=== PATIENT | female | born 1985 | race Caucasian/White ===

== ENCOUNTER 2022-09-20 11:16 | Inpatient (IN) ==
[2022-09-20] MEDS ORDERED: SODIUM CHLORIDE 0.9% 1000ML 1,000 ML IV ONE (11:33)
[2022-09-20] MEDS ORDERED: ONDANSETRON INJ 2 MG/ML 2 ML VIAL IV STA (11:46)
[2022-09-20] MEDS ORDERED: MoRPHine SULFATE 4 MG/ML 1 ML CARP\\VIAL IV STA ×2 (11:46→13:39)
[2022-09-20] MEDS ORDERED: KETOROLAC TROMETHAMINE 15 MG/ML VIAL IV ONE ×2 (11:46→17:30)
[2022-09-20] MEDS ORDERED: CEFEPIME 2,000 MG in SYRINGE 0 ML IV STA (11:49)
[2022-09-20] MEDS ORDERED: metroNIDAZOLE 500 MG/100 ML BAG IV STA (11:50)
--- NOTE | 2022-09-20 11:51 | Emergency Department Note ---
Impression & Plan Cellulitis of left foot, Leukocytosis, Abscess, Puncture wound ED Provider Note NAME: OLAMIDE FELIX AGE: 37 SEX: F : 1985 ARRIVES VIA: Walk-In INFORMANT: [Patient] ED PROVIDER(S): [Andrea Pearson MD] CHIEF COMPLAINT: Left foot pain and swelling HISTORY OF PRESENT ILLNESS: The patient is a 37-year-old female with diabetes. She states that 2 days ago, she stepped on a nail. She was not wearing a shoe. The patient states that there was pain initially but in the last 12 to 24 hours, the pain has worsened to an 8/10, even more painful when she tries to walk. She has noticed redness now spreading over the plantar aspect and dorsal aspect of her left foot. She has pain radiating up her left leg. The patient has had chills, no documented fever. She has not a cough, cold or congestion. No respiratory complaints. The patient was seen at an urgent care and referred to the ED for her work-up. Of note, the patient's tetanus status is current within the last 5 years. PMHx/PSHx: See Below SOCIAL HISTORY: See Below. PHYSICAL EXAM: GENERAL: Patient is in no acute distress. HEENT: No acute trauma, normocephalic atraumatic, mucous membranes moist, no nasal congestion. NECK: No stridor, no adenopathy, no meningismus, trachea is midline. LUNGS: Clear to auscultation bilaterally, no wheeze, no rhonchi, breath sounds equal. HEART: Without murmurs gallops or rubs, regular rate and rhythm. ABDOMEN: Soft, nontender, bowel sounds positive, no peritonitis. EXTREMITIES: Patient has erythema to the dorsal left foot and plantar left foot. There is pain to palpate this area. There is warmth present. No drainage. Along the plantar aspect of the foot at the base of the fifth toe is what appears to be a puncture wound with a potential small half centimeter abscess present. There is pain to move the toes. NEUROLOGIC: Oriented x 3, no acute motor or sensory deficits, no focal weakness. SKIN: No jaundice, no diaphoresis. DIFFERENTIAL DIAGNOSIS: Foreign body, tenosynovitis, cellulitis, fracture, bacteremia or sepsis, abscess, among others. EMERGENCY DEPARTMENT COURSE/PROCEDURES: Prior/Outside records reviewed: Outpatient/urgent care notes. Abscess drainage: This procedure was performed by me. Using sterile technique, an 18-gauge needle was used to open the small abscess seen along the plantar aspect of the left foot at the base of the fifth toe. An 11 blade scalpel was then used to open the area further. Puslike drainage was noted and sent for culture. No complications with the procedure. A bandage was placed. MEDICAL DECISION MAKING: There is a mild leukocytosis which would be consistent with infection. There is no anemia. The platelet count is normal. No renal failure or significant electrolyte abnormality. Lactic acid level and procalcitonin levels are normal making severe sepsis less likely. Urinalysis shows potential contamination versus infection. COVID test returned negative. Left foot CT does show some small abscesses as well as a cellulitis. No foreign body seen. On exam, the patient's left foot was tender and erythematous and warm to the touch. I was able to drain a small amount of pus from the wound as noted above. The patient received IV morphine for pain, IV Toradol for pain, she received IV Zofran for nausea, she was given IV saline, IV Flagyl and IV cefepime. Given the findings today, I do think a hospital stay is warranted. The patient may actually require orthopedic or podiatric surgical intervention if not responding well to the antibiotic therapy. I did speak with the patient and case management, the on-call hospitalist was consulted. DISPOSITION: Given the findings and presentation a hospital stay was warranted. Past Med/Surg History Medical History Diabetes mellitus Social History Smoking Status: Never smoker Preferred Language: Divehi Feels Safe at Home: Yes Allergies Allergies Allergy/AdvReac Type Severity Reaction Status Date / Time azithromycin [From Zithromax] Allergy Difficulty Verified 09/20/22 13:38 Breathing meperidine [From Demerol] Allergy Difficulty Verified 09/20/22 13:38 Breathing Penicillins Allergy Difficulty Verified 09/20/22 13:38 Breathing vancomycin Allergy Difficulty Verified 09/20/22 13:38 Breathing Home Meds Home Medications Medication Instructions Recorded Confirmed buspirone 15 mg tablet 15 mg PO TID 09/20/22 09/20/22 metformin 500 mg tablet,extended 500 mg PO QDD 09/20/22 09/20/22 release 24 hr omeprazole 40 mg capsule,delayed 40 mg PO DAILY 09/20/22 09/20/22 release paroxetine HCl 10 mg tablet 10 mg PO QAM 09/20/22 09/20/22 paroxetine HCl 40 mg tablet 40 mg PO QAM 09/20/22 09/20/22 Results & Data (ED) Vital Signs Vital Signs - 24 hr 09/20/22 11:26 09/20/22 12:29 Temperature 36.3 C L Temperature Source Oral Pulse Rate 85 73 Pulse Rhythm Regular Pulse Strength Normal Respiratory Rate 20 Respiratory Effort / Characteristics Non-Labored Spontaneous Respiratory Depth Normal Respiratory Pattern Regular Blood Pressure 153/97 H Blood Pressure Mean 115 Blood Pressure Position Sitting Pulse Oximetry 97 Oxygen Delivery Method Room Air Sepsis Recent Fever Within 48 Hours No Sepsis New/Unexplained Change in Mental Status No Sepsis Action Taken by Nursing No Action Required Home Medications Current Medication List: was personally reviewed by me Laboratory Data Attestation: I reviewed the patient's lab results. 09/20/22 11:46 09/20/22 11:46 Lab Results 09/20/22 09/20/22 09/20/22 Range/Units 11:46 11:46 11:46 WBC 13.48 H (4.8-10.8) K/ul RBC 4.55 (4.20-5.40) M/uL Hgb 13.8 (12.0-16.0) g/dl Hct 40.6 (37.0-47.0) % MCV 89.2 (80.0-100.0) fL MCH 30.3 (25.0-34.0) pg MCHC 34.0 (32.0-36.0) g/dL RDW Std Deviation 40.4 (36.4-46.3) fL RDW Coeff of Louann 12.3 (11.5-14.5) % Plt Count 297 (130-400) K/uL MPV 10.2 (9.4-12.4) fL Immature Gran % (Auto) 0.4 % Neut % (Auto) 77.5 % Lymph % (Auto) 12.3 % Blair % (Auto) 4.9 % Eos % (Auto) 4.5 % Baso % (Auto) 0.4 % Neut # (Auto) 10.44 H (1.40-6.50) K/uL Lymph # (Auto) 1.66 (1.2-3.4) K/uL Blair # (Auto) 0.66 H (0.11-0.59) K/uL Eos # (Auto) 0.60 H (0-0.50) K/uL Baso # (Auto) 0.06 (0-0.2) K/uL Immature Gran # (Auto) 0.06 (0.01-0.20) K/uL Sodium 139 (136-145) mmol/L Potassium 3.6 (3.5-5.1) mmol/L Chloride 105 (98-107) mmol/L Carbon Dioxide 28 (21-32) mmol/L Anion Gap 6 (3-11) BUN 15 (6-23) mg/dl Creatinine 1.04 (0.6-1.2) mg/dl Est Cr Clr Drug Dosing 95.8 ml/min Est GFR ( Amer) 78.4 ml/min Est GFR (Non-Af Amer) 67.6 ml/min BUN/Creatinine Ratio 14.4 (10-20) Glucose 116 H (70-99(Fasting)) mg/dl Lactate 0.9 (0.4-2.0) mmol/L Calcium 9.1 (8.5-10.1) mg/dl Procalcitonin (0-0.5) ng/ml Urine Color Urine Appearance (Clear) Urine pH (4.5-7.5) Ur Specific [place] (1.000-1.030) Urine Protein (Negative) Urine Glucose (UA) (Negative) Urine Ketones (Negative) Urine Blood (Negative) Urine Nitrite (Negative) Urine Bilirubin (Negative) Urine Urobilinogen (Negative) Ur Leukocyte Esterase (Negative) Urine WBC (Auto) (0-5) /hpf Urine RBC (Auto) (0-4) /hpf U Hyaline Cast (Auto) (0-5) /lpf U Epithel Cells (Auto) (0-5) /lpf Urine Bacteria (Auto) (Negative) SARS-CoV-2, RNA, NAAT (NEGATIVE) 09/20/22 09/20/22 09/20/22 Range/Units 11:58 12:03 13:09 WBC (4.8-10.8) K/ul RBC (4.20-5.40) M/uL Hgb (12.0-16.0) g/dl Hct (37.0-47.0) % MCV (80.0-100.0) fL MCH (25.0-34.0) pg MCHC (32.0-36.0) g/dL RDW Std Deviation (36.4-46.3) fL RDW Coeff of Louann (11.5-14.5) % Plt Count (130-400) K/uL MPV (9.4-12.4) fL Immature Gran % (Auto) % Neut % (Auto) % Lymph % (Auto) % Blair % (Auto) % Eos % (Auto) % Baso % (Auto) % Neut # (Auto) (1.40-6.50) K/uL Lymph # (Auto) (1.2-3.4) K/uL Blair # (Auto) (0.11-0.59) K/uL Eos # (Auto) (0-0.50) K/uL Baso # (Auto) (0-0.2) K/uL Immature Gran # (Auto) (0.01-0.20) K/uL Sodium (136-145) mmol/L Potassium (3.5-5.1) mmol/L Chloride (98-107) mmol/L Carbon Dioxide (21-32) mmol/L Anion Gap (3-11) BUN (6-23) mg/dl Creatinine (0.6-1.2) mg/dl Est Cr Clr Drug Dosing ml/min Est GFR ( Amer) ml/min Est GFR (Non-Af Amer) ml/min BUN/Creatinine Ratio (10-20) Glucose (70-99(Fasting)) mg/dl Lactate (0.4-2.0) mmol/L Calcium (8.5-10.1) mg/dl Procalcitonin 0.09 (0-0.5) ng/ml Urine Color Yellow Urine Appearance Cloudy A (Clear) Urine pH 5.5 (4.5-7.5) Ur Specific [place] 1.036 H (1.000-1.030) Urine Protein 2+ H (Negative) Urine Glucose (UA) Negative (Negative) Urine Ketones Trace H (Negative) Urine Blood 3+ H (Negative) Urine Nitrite Negative (Negative) Urine Bilirubin Negative (Negative) Urine Urobilinogen Negative (Negative) Ur Leukocyte Esterase 2+ H (Negative) Urine WBC (Auto) >30 H (0-5) /hpf Urine RBC (Auto) >30 H (0-4) /hpf U Hyaline Cast (Auto) 10-30 H (0-5) /lpf U Epithel Cells (Auto) 20-30 H (0-5) /lpf Urine Bacteria (Auto) 1+ H (Negative) SARS-CoV-2, RNA, NAAT NEGATIVE (NEGATIVE) Administered Medications Discontinued Medications Sodium Chloride (Nss 1000ml) 1,000 mls @ 999 mls/hr IV .Q1H1M ONE Stop: 09/20/22 12:33 Last Admin: 09/20/22 12:08 Dose: 999 mls/hr Documented By: QGV Cefepime HCl 2,000 mg/ Syringe 20 mls @ 5 mls/min IV NOW STA Stop: 09/20/22 11:52 Last Admin: 09/20/22 12:09 Dose: 5 mls/min Documented By: QGV Metronidazole (Flagyl) 500 mg in 100 mls @ 100 mls/hr IV NOW STA Stop: 09/20/22 12:49 Last Infusion: 09/20/22 13:49 Dose: 0 mls/hr Documented By: Admin: 09/20/22 12:10 Dose: 100 mls/hr Documented By: QGV Ioversol (Optiray 350 100ml) 94 ml IV ONCE ONE Stop: 09/20/22 12:35 Last Admin: 09/20/22 12:35 Dose: 94 ml Documented By: AMAURI Ketorolac Tromethamine (Ketorolac Tromethamine 15 Mg/Ml Vial) 10 mg IV NOW ONE Stop: 09/20/22 11:47 Last Admin: 09/20/22 12:09 Dose: 10 mg Documented By: QGV Morphine Sulfate (Morphine Sulfate 4 Mg/Ml 1 Ml Carp\Vial) 4 mg IV NOW STA Stop: 09/20/22 11:47 Last Admin: 09/20/22 12:09 Dose: 4 mg Documented By: QGV Morphine Sulfate (Morphine Sulfate 4 Mg/Ml 1 Ml Carp\Vial) 4 mg IV NOW STA Stop: 09/20/22 13:40 Last Admin: 09/20/22 13:46 Dose: 4 mg Documented By: QGV Ondansetron HCl (Ondansetron Inj 2 Mg/Ml 2 Ml Vial) 4 mg IV NOW STA Stop: 09/20/22 11:47 Last Admin: 09/20/22 12:09 Dose: 4 mg Documented By: QGV Imaging Data Radiologist's Impression: Foot CT 09/20/22 11:[address] WITH CONTRAST CLINICAL HISTORY: Left foot pain and swelling following stepping on a nail. Possible abscess or foreign body. COMPARISON STUDY: No previous studies for comparison. TECHNIQUE: Axial images of the left foot were obtained following intravenous injection of 94 cc of Optiray 320 IV. Sagittal and coronal reconstructions were viewed. Automated exposure control was utilized for the study. A dose lowering technique was utilized adhering to the principles of ALARA. FINDINGS: Alignment of the left foot is anatomic. Posterior calcaneal spurring with calcifications within the distal Achilles are incidentally noted. There is no acute fracture within the left foot. No radiopaque foreign bodies are present. A marker was placed on the skin at site of recent puncture wound. Associated skin thickening is present. There is moderate associated subcutaneous stranding with fluid along the plantar aspect of the left forefoot, at the level of the bases of the left fourth and fifth toes. There is possible tiny rim- enhancing fluid collections adjacent to the left fifth metatarsal head measuring up to 2 mm. No drainable fluid collection is present. The soft tissue swelling extends toward the left fourth and fifth metatarsophalangeal joints. No bony erosion is identified. Dorsal subcutaneous stranding of the left foot is also noted. Tarsometatarsal joints are intact. IMPRESSION: No radiopaque foreign body. No fracture within the left foot. Puncture wound of the plantar aspect of the left forefoot. Associated skin thickening and inflammation consistent with cellulitis which extends toward the left fourth and fifth metatarsophalangeal joints. A few possible tiny abscesses adjacent to the left fifth metatarsal head, as described above, measuring up to 2 mm. No drainable fluid collections. Dorsal subcutaneous stranding could reflect proximal extension of the infectious process. No CT evidence for tenosynovitis. No evidence for acute osteomyelitis. ACT 112: Negative or not required by law. Electronically signed by: Brian Edmondson M.D. 09/20/2022 1:33 PM Discharge Plan Visit Data Chief Complaint: Swelling/Edema to Extremity Stated Complaint: EXTREMITY SWELLING AFTER STEPPING ON NAIL ED Provider: Andrea Pearson Discharge Problem: Cellulitis of left foot, Leukocytosis, Abscess, Puncture wound Patient Disposition: Admitted As Inpatient Condition: Fair Forms Stand Alone Forms: [facility] Prescriptions Prescriptions: No Action paroxetine HCl 10 mg tablet 10 mg PO QAM omeprazole 40 mg capsule,delayed release(DR/EC) 40 mg PO DAILY paroxetine HCl 40 mg tablet 40 mg PO QAM metformin 500 mg tablet extended release 24 hr 500 mg PO QDD buspirone 15 mg tablet 15 mg PO TID Referrals Referrals: PCP,NO [Primary Care Provider] -
[2022-09-20 12:16] LABS: Basophils # (auto) 0.06 K/uL (0-0.2); Basophils % (auto) 0.4 %; Eosinophils % (auto) 4.5 %; Hematocrit (blood only) 40.6 % (37.0-47.0); Hemoglobin 13.8 g/dl (12.0-16.0); Immature Granulocytes # (auto) 0.06 K/uL (0.01-0.20); Immature Granulocytes % (auto) 0.4 %; Lymphocytes # (auto) 1.66 K/uL (1.2-3.4); Lymphocytes % (auto) 12.3 %; Mean Corpuscular Hemoglobin 30.3 pg (25.0-34.0); Mean Corpuscular Volume 89.2 fL (80.0-100.0); Mean Platelet Volume 10.2 fL (9.4-12.4); Monocytes # (auto) 0.66 K/uL (0.11-0.59); Monocytes % (auto) 4.9 %; Neutrophils # (auto) 10.44 K/uL (1.40-6.50); Neutrophils % (auto) 77.5 %; Platelet Count 297 K/uL (130-400); RDW Coefficient of Variation 12.3 % (11.5-14.5); RDW Standard Deviation 40.4 fL (36.4-46.3); Red Blood Count 4.55 M/uL (4.20-5.40); White Blood Count 13.48 K/ul (4.8-10.8)
[2022-09-20 12:27] LABS: BUN Creatinine Ratio 14.4 (10-20); Calcium 9.1 mg/dl (8.5-10.1); Creatinine Clr Calc Pharmacy 95.8 ml/min; Est GFR (African American) 78.4 ml/min; Est GFR (Non-African American) 67.6 ml/min; Potassium 3.6 mmol/L (3.5-5.1)
[2022-09-20] MEDS ORDERED: OPTIRAY 350 100ml IV ONE (12:34)
[2022-09-20 13:26] LABS: Appearance Urine Cloudy (Clear); Bacteria Urine Automated 1+ (Negative); Bilirubin Urine Negative (Negative); Blood Urine 3+ (Negative); Color Urine Yellow; Epithelial Cell Urine Auto 20-30 /lpf (0-5); Glucose Urine UA Negative (Negative); Ketones Urine Trace (Negative); Leukocyte Esterase Urine 2+ (Negative); Nitrite Urine Negative (Negative); Protein Urine 2+ (Negative); RBC Urine Automated >30 /hpf (0-4); Specific Gravity Urine 1.036 (1.000-1.030); Urobilinogen Urine Negative (Negative); WBC Urine Automated >30 /hpf (0-5); pH Urine 5.5 (4.5-7.5)
--- NOTE | 2022-09-20 13:35 | CT Scan Report ---
LEFT FOOT CT WITH CONTRAST CLINICAL HISTORY: Left foot pain and swelling following stepping on a nail. Possible abscess or forei gn body. COMPARISON STUDY: No previous studies for comparison. TECHNIQUE: Axial images of the left foot were obtained following intravenous injection of 94 cc of Op tiray 320 IV. Sagittal and coronal reconstructions were viewed. Automated exposure control was utiliz ed for the study. A dose lowering technique was utilized adhering to the principles of ALARA. FINDINGS: Alignment of the left foot is anatomic. Posterior calcaneal spurring with calcifications wi thin the distal Achilles are incidentally noted. There is no acute fracture within the left foot. No radiopaque foreign bodies are present. A marker was placed on the skin at site of recent puncture wou nd. Associated skin thickening is present. There is moderate associated subcutaneous stranding with f luid along the plantar aspect of the left forefoot, at the level of the bases of the left fourth and fifth toes. There is possible tiny rim-enhancing fluid collections adjacent to the left fifth metatar ana head measuring up to 2 mm. No drainable fluid collection is present. The soft tissue swelling ext ends toward the left fourth and fifth metatarsophalangeal joints. No bony erosion is identified. Dors al subcutaneous stranding of the left foot is also noted. Tarsometatarsal joints are intact. IMPRESSION: No radiopaque foreign body. No fracture within the left foot. Puncture wound of the plantar aspect of the left forefoot. Associated skin thickening and inflammation consistent with cellulitis which exte nds toward the left fourth and fifth metatarsophalangeal joints. A few possible tiny abscesses adjace nt to the left fifth metatarsal head, as described above, measuring up to 2 mm. No drainable fluid co llections. Dorsal subcutaneous stranding could reflect proximal extension of the infectious process. No CT evidence for tenosynovitis. No evidence for acute osteomyelitis. ACT 112: Negative or not required by law. Electronically signed by: Brian Edmondson M.D. 09/20/2022 1:33 PM
--- NOTE | 2022-09-20 14:19 | History & Physical Report ---
Date of Service September 20, 2022 Assessment & Plan (1) Cellulitis of left foot: Plan: -Admit to med/surge -The patient is currently afebrile, hemodynamically stable, and stable on RA -Patient stepped on a screw on 09/17 and has experienced progressive swelling, erythema, and tenderness to the left foot -Noted to have a leukocytosis with left shit -CT of the left foot shows cellulitis of the left foot with a 2 mm abscess adjacent to the left fifth metatarsal head -S/P I&D of the abscess in the ED, patient was given Cefepime and flagyl prior to admission -Due to her hx of DM and penicillin allergy will continue with Cefepime for Pseudomonas coverage, Flagyl for anaerobic coverage and will add on Daptomycin for MRSA coverage -Follow wound and blood cultures obtained in the ED and tailor abx regimen to them -Will obtain a left LE arterial duplex for assessment of her perfusion to the left foot for further assessment -Tylenol 650 mg PO q4h prn pain 1,2,3 or fever, Morphine 2 mg IV q3h prn pain 4,5,6 + -Will consult ortho to follow -Will start with Sub-Q lovenox for DVT PPX -AM CBC, BMP, and Mag (2) Diabetes mellitus: Plan: -Hold metformin -Monitor BSG ACHS, goal is 110-140 -Lantus 5 units BID, correction factor of 35, carb ratio of 12 -DM II diet (3) GERD (gastroesophageal reflux disease): Plan: -Contiune PPI (4) Asthma: Plan: -Stable on RA without recent exacerbation -Continue PRN albuterol Plan The patient was discussed with Dr. Morales at the time of the admission History of Present Illness Chief Complaint: Please refer to Dr. Morales's attention for any changes to the treatment plan Primary Care Provider: NO PCP Carline is a 37 year old female with a PMH significant for obesity, DM II, GERD, and anxiety who presented to the [facility] ED from an Urgent Care clinic due to left foot swelling. In the ED the patient was found to be afebrile, hemodynamically stable, and stable on RA. Labs were remarkable for a leukocytosis of 13 with left shift of 10, stable Hgb and platelets, cr of 1.04, stable electrolytes, UA showing a cloudy appearance, 2+ urine protein, 2+ leukocyte esterase, >30 WBC, and 1+ bacteria, and covid negative. CT fot he left foot with contrast was read as "No radiopaque foreign body. No fracture within the left foot. Puncture wound of the plantar aspect of the left forefoot. Associated skin thickening and inflammation consistent with cellulitis which extends toward the left fourth and fifth metatarsophalangeal joints. A few possible tiny abscesses adjacent to the left fifth metatarsal head, as described above, measuring up to 2 mm. No drainable fluid collections. Dorsal subcutaneous stranding could reflect proximal extension of the infectious process. No CT evidence for tenosynovitis. No evidence for acute osteomyelitis.". Prior to admission to admission the patient had the small abscess adjacent to the left fifth toe drained and sent for gram stain, culture, and sensitivity. She was given a dose of cefepime and Flagyl and given 10 mg Toradol, 8 mg IV morphine, 1L NSS, and 4 mg IV Zofran. At the time of the exam the patient was resting in bed in no acute distress with her sitting bedside. She states that on 09/17 she stepped on a screw in their bathroom. At the time she had a small puncture wound with a minimal bleeding. She cleaned the wound with hydrogen peroxide and was using a topical antibiotic ointment. Over the past 48 hours her foot has become progressively more swollen, erythematous, and tender. She attempted to drain the area of greatest swelling at the base of her left fifth tow but only had minimal drainage at that time. She denies fevers but has noticed chills, she denies chest pain, abdominal pain, nausea, vomiting, dysuria, hematuria melena. She states that she has known BL kidney stones and has been following with Urology outpatient, her next appointment is next Thursday, she confirms that she has been without urinary symptoms recently. She is no longer taking Paxil due to feeling more anxious when starting the medication recently. Allergies Allergy/AdvReac Type Severity Reaction Status Date / Time azithromycin [From Zithromax] Allergy Difficulty Verified 09/20/22 13:38 Breathing meperidine [From Demerol] Allergy Difficulty Verified 09/20/22 13:38 Breathing Penicillins Allergy Difficulty Verified 09/20/22 13:38 Breathing vancomycin Allergy Difficulty Verified 09/20/22 13:38 Breathing Home Medications Medication Instructions Recorded Confirmed Type albuterol sulfate 90 mcg/actuation 1 puff inhalation Q4 PRN Wheezing 09/20/22 09/20/22 History aerosol inhaler buspirone 15 mg tablet 15 mg PO TID 09/20/22 09/20/22 History metformin 500 mg tablet,extended 500 mg PO QDD 09/20/22 09/20/22 History release 24 hr omeprazole 40 mg capsule,delayed 40 mg PO DAILY 09/20/22 09/20/22 History release Past Med/Surg History Medical History (Updated 09/21/22 @ 09:13 by Lulu Engel PA-C) Diabetes mellitus Social History Smoking Status: Never smoker Second Hand Exposure: No; Do You Dip or Chew Tobacco: No; Hx Alcohol Use: No Hx Substance Use: No Preferred Language: Cuban Communication Ability: Effective [facility] Nurse Required: No Beliefs That Will Affect Care: None Current Living Situation: Spouse and Family Other Information That Helps Us Care for You: No Feels Safe at Home: Yes Safety Concerns: Feels Safe At This Time Assistive Devices: None Review of Systems Review of Systems: Denies current fever, headache, changes in vision, hearing, taste, and smell, chest pain, SOB, cough, abdominal pain, nausea, vomiting, diarrhea, hematemesis, melena, dysuria, hematuria, and recent falls. All systems have been reviewed and are otherwise negative. Physical Exam Physical Exam: Physical Exam: General: In no acute distress, stated age, obese, non-toxic appearing HEENT: Normocephalic, atraumatic, no scleral icterus, pupils around round, symmetrical, and reactive to light, moist mucus membranes, trachea midline, no thyromegaly Chest/Pulm: No respiratory distress, symmetrical chest expansion, clear breath sounds throughout Cardiac: RRR, no murmurs noted Abdomen: Negative for ascites and bruising, normoactive bowel sounds, soft, non-tender to palpation throughout Musculoskeletal:Patient with erythema and swelling of the left foot, recent I&D site noted just proximal to the left fifth toe, not currently drainage, the foot appears swollen and is tender to palpation Extremities: Radial, dorsalis pedis, and posterior tibial pulses are intact and symmetrical, no pitting edema noted in the BL LE's Skin: As described above Neuro: Alert and oriented to person, place, month, year, and president, no focal defects, no tremors noted Psych: No acute distress, calm and cooperative during the exam Results & Data Results & Data ([facility]) Vital Signs (Past 12 Hours) Vital Signs Temp Pulse Resp BP Pulse Ox O2 Del Method 09/20/22 12:29 73 09/20/22 11:26 36.3 C L 85 20 153/97 H 97 Room Air Laboratory Results Abnormal lab results 09/20/22 09/20/22 09/20/22 Range/Units 11:46 11:46 13:09 WBC 13.48 H (4.8-10.8) K/ul Neut # (Auto) 10.44 H (1.40-6.50) K/uL [place] # (Auto) 0.66 H (0.11-0.59) K/uL [place] # (Auto) 0.60 H (0-0.50) K/uL Glucose 116 H (70-99(Fasting)) mg/dl Urine Appearance Cloudy A (Clear) Ur Specific [place] 1.036 H (1.000-1.030) Urine Protein 2+ H (Negative) Urine Ketones Trace H (Negative) Urine Blood 3+ H (Negative) Ur Leukocyte Esterase 2+ H (Negative) Urine WBC (Auto) >30 H (0-5) /hpf Urine RBC (Auto) >30 H (0-4) /hpf U Hyaline Cast (Auto) 10-30 H (0-5) /lpf U Epithel Cells (Auto) 20-30 H (0-5) /lpf Urine Bacteria (Auto) 1+ H (Negative) Diagnostic Findings Foot CT 09/20/22 11:[address] WITH CONTRAST CLINICAL HISTORY: Left foot pain and swelling following stepping on a nail. Possible abscess or foreign body. COMPARISON STUDY: No previous studies for comparison. TECHNIQUE: Axial images of the left foot were obtained following intravenous injection of 94 cc of Optiray 320 IV. Sagittal and coronal reconstructions were viewed. Automated exposure control was utilized for the study. A dose lowering technique was utilized adhering to the principles of ALARA. FINDINGS: Alignment of the left foot is anatomic. Posterior calcaneal spurring with calcifications within the distal Achilles are incidentally noted. There is no acute fracture within the left foot. No radiopaque foreign bodies are present. A marker was placed on the skin at site of recent puncture wound. Associated skin thickening is present. There is moderate associated subcutaneous stranding with fluid along the plantar aspect of the left forefoot, at the level of the bases of the left fourth and fifth toes. There is possible tiny rim- enhancing fluid collections adjacent to the left fifth metatarsal head measuring up to 2 mm. No drainable fluid collection is present. The soft tissue swelling extends toward the left fourth and fifth metatarsophalangeal joints. No bony erosion is identified. Dorsal subcutaneous stranding of the left foot is also noted. Tarsometatarsal joints are intact. IMPRESSION: No radiopaque foreign body. No fracture within the left foot. Puncture wound of the plantar aspect of the left forefoot. Associated skin thickening and inflammation consistent with cellulitis which extends toward the left fourth and fifth metatarsophalangeal joints. A few possible tiny abscesses adjacent to the left fifth metatarsal head, as described above, measuring up to 2 mm. No drainable fluid collections. Dorsal subcutaneous stranding could reflect proximal extension of the infectious process. No CT evidence for tenosynovitis. No evidence for acute osteomyelitis. ACT 112: Negative or not required by law. Electronically signed by: Brian Edmondson M.D. 09/20/2022 1:33 PM Code Status & VTE Plan Code Status Full Code VTE Prophylaxis Plan VTE Prophylaxis will be ordered: Yes Supervising Physician Co-Signing Physician Notes I personally saw and examined the patient. I verified all moon points and agree with Naif Gonzalez PA-C with the following exceptions and/or additions: 37 year old female presents to the ER with left foot cellulitis with initial puncture injury 3 days ago. O/E HS RRR, no murmurs, Chest CTAB, Abdo SNT, erythema and swelling of left foot from puncture wound to ankle (does not extend beyond ankle). PT/DP pulses intact. A/P Left foot cellulitis - diabetic wound - daptomycin, cefepime, metronidazole. Follow up blood and wound cultures. Gram stain many gram positive cocci. US arterial doppler due to diabetes. PG Care Time/CCT Total # of Minutes Spent Total Time Spent with Patient: Total time spent is greater than 50% in coordination of care (as documented) at patient's floor/unit and/or counseling patient: Coding [place] [address] INT INP/OBS CARE 3/75MIN Patient Type Established Medical Decision Making High Complexity Diagnoses Cellulitis of left foot L03.116 Diabetes mellitus E11.9 GERD (gastroesophageal reflux disease) K21.9 Asthma J45.909
[2022-09-20] MEDS ORDERED: DEXTROSE 50% 50 ML SYRINGE IV PRN (14:20)
[2022-09-20] MEDS ORDERED: CARBOHYDRATES FOR HYPOGLYCEMIA PO PRN (14:20)
[2022-09-20] MEDS ORDERED: GLUCOSE 10 TAB/TUBE PO PRN (14:20)
[2022-09-20] MEDS ORDERED: GLUCOSE 40% GEL 15 GM TUBE PO PRN (14:20)
[2022-09-20] MEDS ORDERED: GLUCAGON FOR INJ 1 MG VIAL SQ PRN (14:20)
[2022-09-20] MEDS ORDERED: ACETAMINOPHEN 325 MG TAB PO PRN (14:48)
[2022-09-20] MEDS: DAPTOmycin 325 MG in SYRINGE 0 ML IV SCH (14:50)
[2022-09-20] MEDS: MoRPHine SULFATE 2 MG/ML CARP IV PRN ×3 (15:37→23:28)
--- NOTE | 2022-09-20 15:46 | Ultrasound Report ---
LEFT LOWER EXTREMITY ARTERIAL DOPPLER ULTRASOUND CLINICAL HISTORY: Left foot wound, monitor for adequate blood flow COMPARISON STUDY: No previous studies for comparison. TECHNIQUE: Grayscale, color and duplex Doppler sonography of the arterial system of the left lower ex tremity was performed. FINDINGS: There was triphasic flow within the left common femoral, superficial femoral, popliteal, an terior tibial, posterior tibial, dorsalis pedis and peroneal arteries. No elevated velocities were id entified. No significant plaque was identified. IMPRESSION: Unremarkable left lower extremity arterial Doppler ultrasound. Patent vessels. No stenos es. ACT 112: Negative or not required by law. Electronically signed by: Brian Edmondson M.D. 09/20/2022 3:44 PM
[2022-09-20] MEDS ORDERED: ALBUTEROL HFA 8 GM INHALER INH PRN (16:02)
[2022-09-20] MEDS: INSULIN ASPART PER UNIT SC SCH ×3 (17:27→20:34)
[2022-09-20] MEDS: ENOXAPARIN INJ 40 MG/0.4 ML SYR SQ SCH (18:16)
[2022-09-20] MEDS: busPIRone 15 MG TAB PO SCH (20:25)
[2022-09-20] MEDS: LANTUS PER UNIT CHARGE SQ SCH (20:34)
[2022-09-20] MEDS: ACETAMINOPHEN 325 MG TAB PO SCH (22:19)
[2022-09-20] MEDS: metroNIDAZOLE 500 MG/100 ML BAG IV SCH (22:19)
[2022-09-20] MEDS: CEFEPIME 2,000 MG in SYRINGE 0 ML IV SCH (23:28)
[2022-09-21] MEDS: MoRPHine SULFATE 2 MG/ML CARP IV PRN ×5 (02:29→19:36)
[2022-09-21] MEDS: IBUPROFEN 600 MG TAB PO PRN ×2 (03:23→12:01)
[2022-09-21] MEDS: ENOXAPARIN INJ 40 MG/0.4 ML SYR SQ SCH ×2 (04:51→15:49)
[2022-09-21] MEDS: ACETAMINOPHEN 325 MG TAB PO SCH ×4 (04:51→22:34)
[2022-09-21] MEDS: metroNIDAZOLE 500 MG/100 ML BAG IV SCH ×3 (04:52→21:17)
--- NOTE | 2022-09-21 07:59 | Hospitalist Progress Note ---
Date of Service September 21, 2022 Assessment & Plan (1) Cellulitis of left foot: Plan: Patient w/ PMHx morbid obesity/DM II, GERD admitted following stepping on screw 09/17 with progressive swelling/erythema/tenderness LEFT FOOT (per ER, patient tetanus status current within last 5 years) s/p I&D abscess in ER, given Cefepime + Flagyl Imaging w/ Foot CT: No radiopaque foreign body. No fracture within the left foot. Puncture wound of the plantar aspect of the left forefoot. Associated skin thickening and inflammation consistent with cellulitis which extends toward the left fourth and fifth metatarsophalangeal joints. A few possible tiny abscesses adjacent to the left fifth metatarsal head, as described above, measuring up to 2 mm. No drainable fluid collections. Dorsal subcutaneous stranding could reflect proximal extension of the infectious process. No CT evidence for tenosynovitis. No evidence for acute osteomyelitis. US w/ patent vessels Orthopedics consulted -- continue current plan w/ abx, no abscess for drainage. If not improving, next step MRI for eval abscess/oseo Cx from ER-- group A beta strep on preliminary, monitor Blood cultures pending WBC improved, afebrile Continue on Cefepime/Flagyl/Dapto given PCN allergy Started probiotic Order to ankita area of erythema, elevated extremity (reported by RN elevating yesterday, dependent today) Pain control -- had morphine/tylenol. -- Will add oxycodone prn given page to overnight team and provided ibuprofen Antiemetics prn -- ADDED ZOFRAN, reported n/v this morning. Add Phenergan if ineffective. KUB w/o obstruction -- Checking Renal U/S given stones. Also check Vit D given hx stone formation, consider PTH if needed to r/o hyperparathyroidism causing issues +NS+20meq KCl @ 75cc/hr while having issues w n/v, will cap at 1L and monitor intake/n/v Pepcid IVP daily added Lovenox SQ for DVT prophylaxis Monitor labs in AM (2) Diabetes mellitus: Plan: Hold metformin (on 500mg daily) +check A1c (reports last she believes ~6.7) Cancelled DM educator consult ordered on admission, could have her increase her metformin to 500mg BID outpatient given improvement in A1c to 5.7 on repeat Initially ordered lantus 5u BID, CF 35, CR 12 Given A1c of 5.7 and POC 80-100, discontinued further lantus and will monitor BSGs w/ SSI for now Placed on DM diet (3) GERD (gastroesophageal reflux disease): Plan: Continue PPI, pepcid IVP added while n/v can resume PPI (4) Asthma: Plan: Stable on RA without recent exacerbation Continue PRN albuterol Checked mag -- 1.5, 3gm IV replacement ordered (5) Urinary tract infection: Plan: UA w/ evidence for infection. WBC> epi known b/l kidney stones reported on admit, should be covered w/ abx as above she states she is for surgery this upcoming Thursday for her L renal pelvis stone as almost completely blocking her kidney, also known stones on the right. L CVA tenderness Blood cultures/urine cultures pending Check Renal U/S for eval hydronephrosis/stones given CVA tenderness (6) Nausea & vomiting: Plan: reported this morning 1x zofran overnight, additional 1x dose ordered for NOW and available prn, phenergan if ineffective KUB as above (7) Anxiety: Plan: on buspar, continued per HPI and patient, not taking Paxil, discontinued symptoms appear stable at present (8) Hypomagnesemia: Plan: checked w am labs, n/v, borderline K and hx asthma mag 1.5, IV replacement ordered monitor on repeat (9) Vitamin D deficiency: Plan: levels checked in patient w/ recurrent kidney stones for further eval Plan continued inpatient stay changed to admit Admission and Anticipated Discharge Date Admission Date: September 20, 2022 Supervising Physician Co-Signing Physician Notes The patient was not seen by me. The chart was reviewed. Case discussed with SHASHA Everett. Agree with assessment and plan Subjective eval this morning, episode of vomiting, patel/browinsh color. had not taken meds. no zofran ordered but got 1x dose and made available as needed. States usually improvement in appetite/PO once zofran kicks in. . she states she is feeling better, pain to left foot, tender to touch, redness reported about the same. just got dose oxycodone for pain control, hoping for longer control given ibuprofen overnight. Discussed hx kidney stones/UTI, she states she deals with them so frequently with her kidney stones that she doesn't notice that often. To have surgery for L renal pevis stone with Dr Heller in [place], follows with Dr Moss from [place] for PCP. She notes she has extensive history of stones, not on flomax. Also has 2 stones on the right they are monitoring. No CVA tenderness on the right but does have some on the left. Checking renal US for eval and can copy imaging if needed for her f/u. Not taking paxil due to migraines and making her jittery. Denies any fevers but has had some chills. No chest pain/shortness of breath. Monitoring urine/foot cultures. Not yet seen by orthopedics. Started probiotic while on abx. Last BM 09/19. Last A1c reported she thinks ~6.7. Questions/concerns addressed at this time. Physical Exam Physical Exam: Physical Exam: WN/WD obese female sitting up in bed, reporting improvement since zofran administration HEENT: head normocephalic, atraumatic, mm slightly dry but improved Resp: CTAb, no w/c, on room air CV: RRR, significant m/r/g, no calf tenderness GI: +BS, soft/NT : no rodas, + LEFT CVA tenderness MSK/Neuro: L foot with erythema and swelling, opening to plantar surface of foot near 5th toe, tender to palpation, no active drainage, pulses palpable Psych: AOx3, cooperating Results & Data Results & Data ([facility]) Vital Signs (Past 12 Hours) Vital Signs Temp Pulse Pulse Resp BP BP Pulse Ox 09/21/22 07:15 36.4 C L 67 18 117/78 97 09/20/22 20:31 36.4 C L 63 18 108/64 96 O2 Del Method 09/21/22 07:15 Room Air 09/20/22 20:31 Room Air Laboratory Results 09/20/22 09/20/22 09/20/22 Range/Units 20:27 17:08 13:09 WBC (4.8-10.8) K/ul RBC (4.20-5.40) M/uL Hgb (12.0-16.0) g/dl Hct (37.0-47.0) % MCV (80.0-100.0) fL MCH (25.0-34.0) pg MCHC (32.0-36.0) g/dL RDW Std Deviation (36.4-46.3) fL RDW Coeff of Louann (11.5-14.5) % Plt Count (130-400) K/uL MPV (9.4-12.4) fL Immature Gran % (Auto) % Neut % (Auto) % Lymph % (Auto) % [place] % (Auto) % Eos % (Auto) % Baso % (Auto) % Neut # (Auto) (1.40-6.50) K/uL Lymph # (Auto) (1.2-3.4) K/uL [place] # (Auto) (0.11-0.59) K/uL Eos # (Auto) (0-0.50) K/uL Baso # (Auto) (0-0.2) K/uL Immature Gran # (Auto) (0.01-0.20) K/uL Sodium (136-145) mmol/L Potassium (3.5-5.1) mmol/L Chloride (98-107) mmol/L Carbon Dioxide (21-32) mmol/L Anion Gap (3-11) BUN (6-23) mg/dl Creatinine (0.6-1.2) mg/dl Est Cr Clr Drug Dosing ml/min Est GFR ( Amer) ml/min Est GFR (Non-Af Amer) ml/min BUN/Creatinine Ratio (10-20) Glucose (70-99(Fasting)) mg/dl POC Glucose 92 86 (70-99) mg/dl Lactate (0.4-2.0) mmol/L Calcium (8.5-10.1) mg/dl Procalcitonin (0-0.5) ng/ml Urine Color Yellow Urine Appearance Cloudy A (Clear) Urine pH 5.5 (4.5-7.5) Ur Specific [place] 1.036 H (1.000-1.030) Urine Protein 2+ H (Negative) Urine Glucose (UA) Negative (Negative) Urine Ketones Trace H (Negative) Urine Blood 3+ H (Negative) Urine Nitrite Negative (Negative) Urine Bilirubin Negative (Negative) Urine Urobilinogen Negative (Negative) Ur Leukocyte Esterase 2+ H (Negative) Urine WBC (Auto) >30 H (0-5) /hpf Urine RBC (Auto) >30 H (0-4) /hpf U Hyaline Cast (Auto) 10-30 H (0-5) /lpf U Epithel Cells (Auto) 20-30 H (0-5) /lpf Urine Bacteria (Auto) 1+ H (Negative) SARS-CoV-2, RNA, NAAT (NEGATIVE) 09/20/22 09/20/22 09/20/22 Range/Units 12:03 11:58 11:46 WBC (4.8-10.8) K/ul RBC (4.20-5.40) M/uL Hgb (12.0-16.0) g/dl Hct (37.0-47.0) % MCV (80.0-100.0) fL MCH (25.0-34.0) pg MCHC (32.0-36.0) g/dL RDW Std Deviation (36.4-46.3) fL RDW Coeff of Louann (11.5-14.5) % Plt Count (130-400) K/uL MPV (9.4-12.4) fL Immature Gran % (Auto) % Neut % (Auto) % Lymph % (Auto) % [place] % (Auto) % Eos % (Auto) % Baso % (Auto) % Neut # (Auto) (1.40-6.50) K/uL Lymph # (Auto) (1.2-3.4) K/uL [place] # (Auto) (0.11-0.59) K/uL Eos # (Auto) (0-0.50) K/uL Baso # (Auto) (0-0.2) K/uL Immature Gran # (Auto) (0.01-0.20) K/uL Sodium (136-145) mmol/L Potassium (3.5-5.1) mmol/L Chloride (98-107) mmol/L Carbon Dioxide (21-32) mmol/L Anion Gap (3-11) BUN (6-23) mg/dl Creatinine (0.6-1.2) mg/dl Est Cr Clr Drug Dosing ml/min Est GFR ( Amer) ml/min Est GFR (Non-Af Amer) ml/min BUN/Creatinine Ratio (10-20) Glucose (70-99(Fasting)) mg/dl POC Glucose (70-99) mg/dl Lactate 0.9 (0.4-2.0) mmol/L Calcium (8.5-10.1) mg/dl Procalcitonin 0.09 (0-0.5) ng/ml Urine Color Urine Appearance (Clear) Urine pH (4.5-7.5) Ur Specific [place] (1.000-1.030) Urine Protein (Negative) Urine Glucose (UA) (Negative) Urine Ketones (Negative) Urine Blood (Negative) Urine Nitrite (Negative) Urine Bilirubin (Negative) Urine Urobilinogen (Negative) Ur Leukocyte Esterase (Negative) Urine WBC (Auto) (0-5) /hpf Urine RBC (Auto) (0-4) /hpf U Hyaline Cast (Auto) (0-5) /lpf U Epithel Cells (Auto) (0-5) /lpf Urine Bacteria (Auto) (Negative) SARS-CoV-2, RNA, NAAT NEGATIVE (NEGATIVE) 09/20/22 09/20/22 Range/Units 11:46 11:46 WBC 13.48 H (4.8-10.8) K/ul RBC 4.55 (4.20-5.40) M/uL Hgb 13.8 (12.0-16.0) g/dl Hct 40.6 (37.0-47.0) % MCV 89.2 (80.0-100.0) fL MCH 30.3 (25.0-34.0) pg MCHC 34.0 (32.0-36.0) g/dL RDW Std Deviation 40.4 (36.4-46.3) fL RDW Coeff of Louann 12.3 (11.5-14.5) % Plt Count 297 (130-400) K/uL MPV 10.2 (9.4-12.4) fL Immature Gran % (Auto) 0.4 % Neut % (Auto) 77.5 % Lymph % (Auto) 12.3 % [place] % (Auto) 4.9 % Eos % (Auto) 4.5 % Baso % (Auto) 0.4 % Neut # (Auto) 10.44 H (1.40-6.50) K/uL Lymph # (Auto) 1.66 (1.2-3.4) K/uL [place] # (Auto) 0.66 H (0.11-0.59) K/uL Eos # (Auto) 0.60 H (0-0.50) K/uL Baso # (Auto) 0.06 (0-0.2) K/uL Immature Gran # (Auto) 0.06 (0.01-0.20) K/uL Sodium 139 (136-145) mmol/L Potassium 3.6 (3.5-5.1) mmol/L Chloride 105 (98-107) mmol/L Carbon Dioxide 28 (21-32) mmol/L Anion Gap 6 (3-11) BUN 15 (6-23) mg/dl Creatinine 1.04 (0.6-1.2) mg/dl Est Cr Clr Drug Dosing 95.8 ml/min Est GFR ( Amer) 78.4 ml/min Est GFR (Non-Af Amer) 67.6 ml/min BUN/Creatinine Ratio 14.4 (10-20) Glucose 116 H (70-99(Fasting)) mg/dl POC Glucose (70-99) mg/dl Lactate (0.4-2.0) mmol/L Calcium 9.1 (8.5-10.1) mg/dl Procalcitonin (0-0.5) ng/ml Urine Color Urine Appearance (Clear) Urine pH (4.5-7.5) Ur Specific [place] (1.000-1.030) Urine Protein (Negative) Urine Glucose (UA) (Negative) Urine Ketones (Negative) Urine Blood (Negative) Urine Nitrite (Negative) Urine Bilirubin (Negative) Urine Urobilinogen (Negative) Ur Leukocyte Esterase (Negative) Urine WBC (Auto) (0-5) /hpf Urine RBC (Auto) (0-4) /hpf U Hyaline Cast (Auto) (0-5) /lpf U Epithel Cells (Auto) (0-5) /lpf Urine Bacteria (Auto) (Negative) SARS-CoV-2, RNA, NAAT (NEGATIVE) Diagnostic Findings Foot CT 09/20/22 11:[address] WITH CONTRAST CLINICAL HISTORY: Left foot pain and swelling following stepping on a nail. Possible abscess or foreign body. COMPARISON STUDY: No previous studies for comparison. TECHNIQUE: Axial images of the left foot were obtained following intravenous i njection of 94 cc of Optiray 320 IV. Sagittal and coronal reconstructions were viewed. Automated exposure control was utilized for the study. A dose lowering technique was utilized adhering to the principles of ALARA. FINDINGS: Alignment of the left foot is anatomic. Posterior calcaneal spurring with calcifications within the distal Achilles are incidentally noted. There is no acute fracture within the left foot. No radiopaque foreign bodies are present. A marker was placed on the skin at site of recent puncture wound. Associated skin thickening is present. There is moderate associated subcutaneous stranding with fluid along the plantar aspect of the left forefoot, at the level of the bases of the left fourth and fifth toes. There is possible tiny rim- enhancing fluid collections adjacent to the left fifth metatarsal head measuring up to 2 mm. No drainable fluid collection is present. The soft tissue swelling extends toward the left fourth and fifth metatarsophalangeal joints. No bony erosion is identified. Dorsal subcutaneous stranding of the left foot is also noted. Tarsometatarsal joints are intact. IMPRESSION: No radiopaque foreign body. No fracture within the left foot. Puncture wound of the plantar aspect of the left forefoot. Associated skin thickening and inflammation consistent with cellulitis which extends toward the left fourth and fifth metatarsophalangeal joints. A few possible tiny abscesses adjacent to the left fifth metatarsal head, as described above, measuring up to 2 mm. No drainable fluid collections. Dorsal subcutaneous stranding could reflect p roximal extension of the infectious process. No CT evidence for tenosynovitis. No evidence for acute osteomyelitis. ACT 112: Negative or not required by law. Electronically signed by: Brian Edmondson M.D. 09/20/2022 1:33 PM Duplex Scan Lower Extremity Artery 09/20/22 14:33 LEFT LOWER EXTREMITY ARTERIAL DOPPLER ULTRASOUND CLINICAL HISTORY: Left foot wound, monitor for adequate blood flow COMPARISON STUDY: No previous studies for comparison. TECHNIQUE: Grayscale, color and duplex Doppler sonography of the arterial system of the left lower extremity was performed. FINDINGS: There was triphasic flow within the left common femoral, superficial femoral, popliteal, anterior tibial, posterior tibial, dorsalis pedis and peroneal arteries. No elevated velocities were identified. No significant plaque was identified. IMPRESSION: Unremarkable left lower extremity arterial Doppler ultrasound. Patent vessels. No stenoses. ACT 112: Negative or not required by law. Electronically signed by: Brian Edmondson M.D. 09/20/2022 3:44 PM KUB X-Ray 09/21/22 08:37 KUB CLINICAL HISTORY: Nausea and vomiting. COMPARISON STUDY: None. FINDINGS: Cholecystectomy clips are incidentally noted. There is no evidence for a bowel obstruction. Contrast within the bladder from recent contrast-enhanced CT is noted. Pelvic calcifications statistically reflect phleboliths. 8 mm calcification projects of the left renal pelvis. There are suspected small bilateral renal calculi. IMPRESSION: 1. Possible 8 mm left renal pelvis calculus. 2. Suspected bilateral nephrolithiasis. 3. Multiple pelvic calcifications. These likely reflect phleboliths although distal ureteral calculi could appear similar. ACT 112: Negative or not required by law. Electronically signed by: Brian Edmondson M.D. 09/21/2022 9:38 AM PG Care Time/CCT Total # of Minutes Spent Total Time Spent with Patient: Total time spent is greater than 50% in coordination of care (as documented) at patient's floor/unit and/or counseling patient: Coding Level of Care Code 19446 SUB INP/OBS CARE 3/50MIN Diagnoses Cellulitis of left foot L03.116 Diabetes mellitus E11.9 GERD (gastroesophageal reflux disease) K21.9 Asthma J45.909 Urinary tract infection N39.0 Nausea & vomiting R11.2 Anxiety F41.9 Hypomagnesemia E83.42 Vitamin D deficiency E55.9
[2022-09-21] MEDS: PANTOprazole 40 MG TAB PO SCH (08:30)
[2022-09-21] MEDS: busPIRone 15 MG TAB PO SCH ×3 (08:30→21:16)
[2022-09-21] MEDS ORDERED: ONDANSETRON INJ 2 MG/ML 2 ML VIAL IV STA (08:34)
[2022-09-21] MEDS ORDERED: FAMOTIDINE 20 MG in SYRINGE 3 ML IV ONE (08:35)
[2022-09-21] MEDS ORDERED: ONDANSETRON INJ 2 MG/ML 2 ML VIAL ONE (08:37)
[2022-09-21] MEDS: INSULIN ASPART PER UNIT SC SCH ×4 (08:48→21:28)
[2022-09-21] MEDS: LANTUS PER UNIT CHARGE SQ SCH (08:49)
[2022-09-21] MEDS: oxyCODONE HCL IR 5 MG TAB (IMMEDIATE RELEASE) PO PRN ×3 (08:53→22:33)
[2022-09-21 08:54] LABS: Calcium 8.9 mg/dl (8.5-10.1); Creatinine Clr Calc Pharmacy 102.1 ml/min; Potassium 3.7 mmol/L (3.5-5.1)
[2022-09-21] MEDS ORDERED: PARoxetine HCL 10 MG TAB PO SCH (09:00)
[2022-09-21 09:04] LABS: BUN Creatinine Ratio 16.5 (10-20); Est GFR (African American) 85.3 ml/min; Est GFR (Non-African American) 73.6 ml/min; Magnesium 1.5 mg/dl (1.7-2.4)
[2022-09-21 09:06] LABS: Prothrombin Time 10.5 Seconds (9.0-12.0)
[2022-09-21] MEDS: ADVANCED PROBIOTIC 1250 MG CAPSULE PO SCH (09:22)
--- NOTE | 2022-09-21 09:40 | XRay Report ---
KUB CLINICAL HISTORY: Nausea and vomiting. COMPARISON STUDY: None. FINDINGS: Cholecystectomy clips are incidentally noted. There is no evidence for a bowel obstruction. Contrast within the bladder from recent contrast-enhanced CT is noted. Pelvic calcifications statist ically reflect phleboliths. 8 mm calcification projects of the left renal pelvis. There are suspected small bilateral renal calculi. IMPRESSION: 1. Possible 8 mm left renal pelvis calculus. 2. Suspected bilateral nephrolithiasis. 3. Multiple pelvic calcifications. These likely reflect phleboliths although distal ureteral calculi could appear similar. ACT 112: Negative or not required by law. Electronically signed by: Brian Edmondson M.D. 09/21/2022 9:38 AM
--- NOTE | 2022-09-21 10:20 | Consultation Report ---
ORTHOPEDIC SURGERY CONSULTATION Special attention to left diabetic foot infection. HISTORY OF PRESENT ILLNESS: This is a 37-year-old female who sustained a puncture wound on 09/17/2022 which actually stepped on a screw. She has progressive pain and swelling of the left foot. She was admitted to the hospitalist service and has been started on antibiotics. She was given cefepime and Flagyl in the Emergency Department and I and D was performed in the ER. She is currently on cefepime, Flagyl, and daptomycin. Diagnostic studies: Review of ultrasound shows patent vessels without evidence of blockage. Review of a CAT scan of the foot. Does not show definitive evidence of osteomyelitis or drainable fluid collection, possible tiny fluid collection about 2 cm is suggested. No CAT scan evidence of tenosynovitis. PHYSICAL EXAMINATION: On left foot exam, there is a puncture wound to the volar aspect of the foot. I cannot express any pus. She has surrounding erythema of the foot extending to the dorsal aspect of the foot about 3 inches proximal to the toes. The patient has pain with motion of the toes. I did not identify any definitive fluctuant area. No streaking erythema. Calves are soft. PAST MEDICAL HISTORY: Includes, 1. Diabetes. 2. GERD. 3. Asthma. 4. Urinary tract infection. ASSESSMENT: Diabetic foot infection, likely cellulitis. PLAN: At this point in time, recommendation is to continue antibiotics. I do not see a surgical indications at this time as there is no large drainable abscess identified on CAT scan, no evidence of osteomyelitis. We will recommend to follow clinical course. If she does not have improvement or worsens, the next step would be MRI for evaluation of abscess or osteomyelitis. Should her course worsen, I would recommend consideration for referral to a Podiatry or orthopedic family development extension specialist for possible irrigation and debridement. At this point in time, no surgical indications currently. Job ID: [id number] [facility]
[2022-09-21] MEDS: MAGNESIUM SULFATE / D5W 1 GM/100 ML BAG IV SCH ×3 (10:30→14:31)
--- NOTE | 2022-09-21 10:33 | Ultrasound Report ---
RENAL ULTRASOUND HISTORY: n/v, hx stones, eval pyelo COMPARISON: KUB 09/21/2022. FINDINGS: Right kidney: 12.1 cm. There are 2 stones measuring 9 mm and 5 mm. No hydronephrosis. Focal scarring within the right kidney is noted. Left kidney: 11.6 cm. There are 2 stones measuring 13 mm and 9 mm. A 13 mm stone resides within the r enal pelvis. No hydronephrosis. Focal scarring within the upper pole. Bladder: No bladder wall thickening. The bilateral ureteral jets were identified. IMPRESSION: 1. Bilateral nephrolithiasis. The dominant 13 mm stone within the left kidney resides within the left renal pelvis. 2. No hydronephrosis. ACT 112: Negative or not required by law. Electronically signed by: David Peralta M.D. 09/21/2022 10:30 AM
[2022-09-21] MEDS ORDERED: PROMETHAZINE HCL 6.25 MG in SODIUM CHLORIDE 0.9% 50 ML IV STA (10:34)
[2022-09-21 10:41] LABS: Basophils % (auto) 0.8 %; Eosinophils # (auto) 0.74 K/uL (0-0.50); Eosinophils % (auto) 5.7 %; Hematocrit (blood only) 39.2 % (37.0-47.0); Hemoglobin 13.3 g/dl (12.0-16.0); Immature Granulocytes # (auto) 0.04 K/uL (0.01-0.20); Immature Granulocytes % (auto) 0.3 %; Lymphocytes % (auto) 12.3 %; Mean Corpuscular Hemoglobin 30.4 pg (25.0-34.0); Mean Corpuscular Hgb Conc 33.9 g/dL (32.0-36.0); Mean Corpuscular Volume 89.5 fL (80.0-100.0); Mean Platelet Volume 10.4 fL (9.4-12.4); Monocytes # (auto) 0.64 K/uL (0.11-0.59); Monocytes % (auto) 4.9 %; Neutrophils # (auto) 9.85 K/uL (1.40-6.50); Platelet Count 269 K/uL (130-400); RDW Coefficient of Variation 12.5 % (11.5-14.5); RDW Standard Deviation 41.2 fL (36.4-46.3); Red Blood Count 4.38 M/uL (4.20-5.40); White Blood Count 12.97 K/ul (4.8-10.8)
[2022-09-21] MEDS ORDERED: NSS + 20MEQ KCL 20 MEQ/1,000 ML BAG IV SCH (10:45)
[2022-09-21 11:23] LABS: Estimated Average Glucose 117 mg/dl; Hemoglobin A1C 5.7 % (4.5-5.6)
[2022-09-21] MEDS: CEFEPIME 2,000 MG in SYRINGE 0 ML IV SCH (12:03)
[2022-09-21] MEDS: ONDANSETRON INJ 2 MG/ML 2 ML VIAL IV PRN ×3 (13:16→22:33)
[2022-09-21] MEDS: DAPTOmycin 325 MG in SYRINGE 0 ML IV SCH (15:49)
--- NOTE | 2022-09-21 17:02 | Urology Consultation ---
Date of Consultation September 21, 2022 Assessment & Plan (1) Bilateral kidney stones: (2) Abscess: (3) Cellulitis of left foot: (4) Diabetes mellitus: (5) Urinary tract infection: (6) Nausea & vomiting: Plan Patient admitted for cellulitis and significant infection. Undergoing antibiotic management. Patient also has known stone disease. Has followed with urologist in [place]. Has had significant issues with flank pain at times. Has come and gone. Patient has been having intermittent issues. Has large bilateral stones. Were confirmed on ultrasound. No signs of considerable obstruction. Has been dealing with UTI symptoms as well. Has been undergoing treatment for this. Patient's vitals are currently stable. Has not been having considerable tachycardia and no hypotension. No fever. Patient is on broad-spectrum antibiotics. White count is currently 12.97. Creatinine was 0.97. Hemoglobin is 13.3. Patient's imaging was reviewed interpreted by myself. Findings of numerous large stones on both kidneys. No signs of significant hydronephrosis. Discussed options for conservative measure and maximum expulsion medical therapy and symptom controlled. Discussed ESWL. Discussed Ureteroscopy with extraction and/or laser lithotripsy. Risks and benefits were discussed. Stone free rates were also discussed as well as possibility of multiple procedures. Ureteral stents were discussed as well as post-operative issues and pain management. All questions were answered. Discussed continued conservative measures with hydration and IV antibiotics. We will plan to monitor for now. Can consider making n.p.o. at midnight with possibility of treatment of stones if patient continues to have issues. Was plan to seeing her urologist in [place] ion Thursday. Patient's complicated medical and surgical history was. Summarized above. All imaging was reviewed interpreted by myself. Lab work was all reviewed. Number of positive values as above. Patient's currently on broad-spectrum antibiotics and agree with plans to de-escalate based on cultures. Patient has had numerous stones treated in the past. Has had PCNL, lithotripsy, and ureteroscopy. At this point patient is most concerned about a managing her lower extremity issues. Unless a major or sudden obstruction or other issue developed at this point would likely hold off on major intervention. Will maintain n.p.o. after midnight tonight in case issues do develop but otherwise will likely have patient follow-up with her known urologist down in [place]. History of Present Illness Attending Physician: Nicolás Banks MD History of Present Illness New consultation for patient with stone, discomfort, obstruction, and ill feelings. Patient developed sudden onset of pain into flank going down and radiating into groin and back in waves comes and goes. Can be severe at times. Discussed and reviewed patient's family history for any history of stone disease. Also, discussed patient's medical surgery history especially related to any history of urinary issues or stone disease. Patient was admitted and is undergoing observation for LE cellulitis. Patient has been on antibiotics. Has been dealing with significant issues. Does have diabetes and obesity. Also numerous drug allergies. Patient has been following with an urologist down in [place]. At [place] there was some plans to possibly treat the large burden of stones bilaterally. Has been dealing with intermittent episodes of flank pain. Has been bothersome at times. Allergies Allergy/AdvReac Type Severity Reaction Status Date / Time azithromycin [From Zithromax] Allergy Difficulty Verified 09/20/22 13:38 Breathing meperidine [From Demerol] Allergy Difficulty Verified 09/20/22 13:38 Breathing Penicillins Allergy Difficulty Verified 09/20/22 13:38 Breathing vancomycin Allergy Difficulty Verified 09/20/22 13:38 Breathing Home Medications Medication Instructions Recorded Confirmed Type albuterol sulfate 90 mcg/actuation 1 puff inhalation Q4 PRN Wheezing 09/20/22 09/20/22 History aerosol inhaler buspirone 15 mg tablet 15 mg PO TID 09/20/22 09/20/22 History metformin 500 mg tablet,extended 500 mg PO QDD 09/20/22 09/20/22 History release 24 hr omeprazole 40 mg capsule,delayed 40 mg PO DAILY 09/20/22 09/20/22 History release Patient History Medical History (Updated 09/21/22 @ 16:59 by Jim Louis DO) Diabetes mellitus Social History Smoking Status: Never smoker Second Hand Exposure: No; Do You Dip or Chew Tobacco: No; Hx Alcohol Use: No Hx Substance Use: No Preferred Language: Greenlandic Communication Ability: Effective Store Operations Specialist Required: No Beliefs That Will Affect Care: None Current Living Situation: Spouse and Family Other Information That Helps Us Care for You: No Feels Safe at Home: Yes Safety Concerns: Feels Safe At This Time Assistive Devices: None Review of Systems Review of Systems: All systems reviewed & are unremarkable except as noted in HPI & below Physical Exam Physical Exam: General: Alert and oriented x 3 in no acute distress. HEENT: Normocephalic Atraumatic. Inspection normal. Cranial Nerves 2-12 Grossly intact. Nares are clear. Neck is supple. Normal inspection of face. Normal inspection of neck. Neurologic: No deficits on inspection. Baseline for motor function and sensory. Psychologic: Normal affect. Respiratory: Nonlabored. No use of accessory muscles. No tachypnea or dyspnea. Cardiovascular: No tachycardia Skin: [place] and Dry. No rashes or visible lesions. Extremities: Significant Cellulitis Abdomen: Morbid Obesity. Moderately distended. No rebound or guarding. Results & Data ([facility]) Vital Signs (Past 12 Hours) Vital Signs Temp Pulse Resp BP Pulse Ox O2 Del Method 09/21/22 15:17 37.0 C 64 16 119/73 96 Room Air 09/21/22 07:15 36.4 C L 67 18 117/78 97 Room Air PG Care Time/CCT Total # of Minutes Spent Total Time Spent with Patient: Total time spent is greater than 50% in coordination of care (as documented) at patient's floor/unit and/or counseling patient: Coding Level of Care Code 77383 INT INP/OBS CARE 3/75MIN Diagnoses Bilateral kidney stones N20.0 Abscess L02.91 Cellulitis of left foot L03.116 Diabetes mellitus E11.9 Urinary tract infection N39.0 Nausea & vomiting R11.2
[2022-09-21] MEDS: PROMETHAZINE HCL 6.25 MG in SODIUM CHLORIDE 0.9% 50 ML IV PRN (18:23)
[2022-09-22] MEDS: IBUPROFEN 600 MG TAB PO PRN ×2 (00:07→21:46)
[2022-09-22] MEDS: ONDANSETRON INJ 2 MG/ML 2 ML VIAL IV PRN ×2 (03:16→19:29)
[2022-09-22] MEDS: MoRPHine SULFATE 2 MG/ML CARP IV PRN ×4 (03:17→19:29)
[2022-09-22] MEDS ORDERED: Nursing to Pharmacy Communication SCH ×3 (04:45→16:15)
[2022-09-22] MEDS: ENOXAPARIN INJ 40 MG/0.4 ML SYR SQ SCH ×2 (05:10→17:46)
[2022-09-22] MEDS: metroNIDAZOLE 500 MG/100 ML BAG IV SCH ×3 (06:05→22:24)
[2022-09-22] MEDS: PROMETHAZINE HCL 6.25 MG in SODIUM CHLORIDE 0.9% 50 ML IV PRN (06:14)
[2022-09-22] MEDS: ACETAMINOPHEN 325 MG TAB PO SCH ×4 (06:26→21:47)
[2022-09-22] MEDS: INSULIN ASPART PER UNIT SC SCH ×4 (06:27→20:48)
--- NOTE | 2022-09-22 07:03 | Orthopedic Progress Note ---
Date of Service September 22, 2022 Assessment & Plan (1) Cellulitis of left foot: (2) Abscess: Plan Left diabetic foot infection with cellulitis Concern for development of abscess vs. osteomyelitis -Patient continues with left foot pain, unchanged since yesterday -Examination today with continued erythema and edema, redevelopment of purulent discharge since yesterday concerning for possible abscess formation -Will order MRI left foot w/o contrast for further evaluation of abscess vs. osteomyelitis -Preliminary wound cultures with Group A Beta strep. Currently on IV Cefepime, Flagyl and Daptomycin - continue abx per primary -Will follow results of MRI - possible need for repeat I&D vs. other surgical intervention pending results -Continue dressing changes as needed Admission and Anticipated Discharge Date Admission Date: September 21, 2022 Subjective Patient continues with left foot pain, states unchanged since yesterday. She is able to move her great toe but is having difficulty moving her 2nd-5th toes due to her discomfort. No numbness/tingling. She continues on IV abx, has remained afebrile and additional VSS. Also currently being monitored by Urology for bilateral kidney stones, considering possible intervention if worsening symptom or signs of acute obstruction. Physical Exam Physical Exam: General: Resting in bed, appears uncomfortable but no acute distress Neuro: Awake, alert and oriented x 3 Left foot/lower extremity: Puncture wound to the volar aspect of the foot about the distal 5th metatarsal with purulent drainage. Surrounding erythema and edema extending to the dorsal aspect of the foot into the toes. Fluctuant and extr jaylan tender to palpation. Great toe is mobile, unable to move 2nd-5th toes secondary to pain. No lymphangitic erythema. ROM of the ankle intact, calves remain soft. Sensation and d/p pulse intact Results & Data ([facility]) Vital Signs (Past 12 Hours) Vital Signs Temp Pulse Resp BP Pulse Ox O2 Del Method 09/21/22 20:55 36.9 C 87 18 139/90 95 Room Air Laboratory Results Laboratory Tests 09/22/22 09/22/22 06:42 06:42 WBC 14.00 H RBC 4.39 Hgb 13.2 Hct 39.2 Neut # (Auto) 10.81 H [place] # (Auto) 0.67 H Eos # (Auto) 0.67 H Sodium 138 Potassium 3.6 Chloride 104 BUN 13 Creatinine 1.07 Glucose 113 H
[2022-09-22 07:06] LABS: Basophils # (auto) 0.07 K/uL (0-0.2); Basophils % (auto) 0.5 %; Eosinophils # (auto) 0.67 K/uL (0-0.50); Eosinophils % (auto) 4.8 %; Hematocrit (blood only) 39.2 % (37.0-47.0); Hemoglobin 13.2 g/dl (12.0-16.0); Immature Granulocytes # (auto) 0.08 K/uL (0.01-0.20); Immature Granulocytes % (auto) 0.6 %; Lymphocytes % (auto) 12.1 %; Mean Corpuscular Hemoglobin 30.1 pg (25.0-34.0); Mean Corpuscular Hgb Conc 33.7 g/dL (32.0-36.0); Mean Corpuscular Volume 89.3 fL (80.0-100.0); Monocytes # (auto) 0.67 K/uL (0.11-0.59); Monocytes % (auto) 4.8 %; Neutrophils # (auto) 10.81 K/uL (1.40-6.50); Neutrophils % (auto) 77.2 %; Platelet Count 306 K/uL (130-400); RDW Coefficient of Variation 12.3 % (11.5-14.5); RDW Standard Deviation 39.8 fL (36.4-46.3); Red Blood Count 4.39 M/uL (4.20-5.40)
[2022-09-22 07:24] LABS: Albumin Level 3.6 gm/dl (3.4-5.0); BUN Creatinine Ratio 12.1 (10-20); Bilirubin Direct 0.2 mg/dl (0-0.2); Bilirubin,Total 0.8 mg/dl (0.2-1.0); Creatinine Clr Calc Pharmacy 91.6 ml/min; Est GFR (African American) 75.7 ml/min; Est GFR (Non-African American) 65.3 ml/min; Magnesium 1.9 mg/dl (1.7-2.4); Potassium 3.6 mmol/L (3.5-5.1)
[2022-09-22] MEDS: busPIRone 15 MG TAB PO SCH ×3 (07:31→20:40)
[2022-09-22] MEDS: ADVANCED PROBIOTIC 1250 MG CAPSULE PO SCH (07:32)
[2022-09-22] MEDS: FAMOTIDINE 20 MG in SYRINGE 3 ML IV SCH (07:35)
[2022-09-22] MEDS: oxyCODONE HCL IR 5 MG TAB (IMMEDIATE RELEASE) PO PRN ×2 (07:35→20:40)
[2022-09-22] MEDS: PANTOprazole 40 MG TAB PO SCH (07:36)
[2022-09-22] MEDS ORDERED: LORazepam 2 MG/1 ML VIAL IV STA (07:58)
[2022-09-22] MEDS ORDERED: ERGOCALCIFEROL 50,000 UNITS 1250 MCG CAP PO SCH (08:00)
[2022-09-22 08:27] LABS: C Reactive Protein 9.22 mg/dl (0-0.5)
--- NOTE | 2022-09-22 09:18 | Hospitalist Progress Note ---
Date of Service September 22, 2022 Assessment & Plan (1) Cellulitis of left foot: Plan: Patient w/ PMHx morbid obesity/DM II, GERD admitted following stepping on screw 09/17 with progressive swelling/erythema/tenderness LEFT FOOT (per ER, patient tetanus status current within last 5 years) s/p I&D abscess in ER, given Cefepime + Flagyl Imaging w/ Foot CT: No radiopaque foreign body. No fracture within the left foot. Puncture wound of the plantar aspect of the left forefoot. Associated skin thickening and inflammation consistent with cellulitis which extends toward the left fourth and fifth metatarsophalangeal joints. A few possible tiny abscesses adjacent to the left fifth metatarsal head, as described above, measuring up to 2 mm. No drainable fluid collections. Dorsal subcutaneous stranding could reflect proximal extension of the infectious process. No CT evidence for tenosynovitis. No evidence for acute osteomyelitis. US w/ patent vessels ESR 42, CRP 9.22 CX fro I&D in ER - group A beta strep on prelim -- monitor Remains on Dapto/Cefepime/Flagyl IV for now given PCN allergy -- tailor abx as able Orthopedics consulted MRI obtained this morning for further eval * 1. Puncture wound of the left forefoot with adjacent T2 hyperintense material which favors phlegmon and cellulitis. This is most pronounced at the bases of the left fourth and fifth toes. No drainable fluid collection identified on unenhanced exam. * 2. No marrow edema to indicate acute osteomyelitis. * 3. Extensive dorsal subcutaneous fluid of the left midfoot and forefoot. This could reflect extensive infectious process or edema. Discussed w/ Dr Ellsworth and does not feel surgical but rec to consult Dr Gill/podiatry to continue to monitor for any need for surgical intervention Rec'd patient keep leg elevated (had been dependent much of yesterday) Pain control/antiemetics IVF for dehydration, additional 1L for today while NPO for urology - see below WBC 14k today but did have significant n/v yesterday (suspected from kidney stones, does have underlying Crohns). KUB w/o obstruction Blood cultures pending, NGTD Has remained afebrile Pepcid IVP daily while on abx for GI proph Lovenox SQ for DVT prophylaxis ordered Monitor status on repeat exams, appreciate orthopedics recs Monitor labs in AM (2) Bilateral kidney stones: Plan: Checked Renal U/S given stones. Also check Vit D/PTH given hx stone formation PTH appropriately elevated given [place] 10[place]8 [place] [address] weekly for about a year, apparently prior levels were undetectable, along w/ B12 which she gets monthly injections for) Oral supplementation started and would continue at discharge did get 1L IVF yesterday for n/v decreased PO intake NPO at midnight for eval by urology, initially no plans but patient told me possible cysto later today Per urology, add on later today and continue NPO Did add additional IVF +20K @ 100cc/hr while nPO for dehydration on exam (3) Diabetes mellitus: Plan: Hold metformin (on 500mg daily) +check A1c (reports last she believes ~6.7) Cancelled DM educator consult ordered on admission, could have her increase her metformin to 500mg BID outpatient given improvement in A1c to 5.7 on repeat Initially ordered lantus 5u BID, CF 35, CR 12 Given A1c of 5.7 and POC 80-100, discontinued further lantus and will monitor BSGs w/ SSI for now Placed on DM diet, BSGs acceptable (4) GERD (gastroesophageal reflux disease): Plan: Continue PPI, pepcid IVP added while n/v, can resume PPI (5) Asthma: Plan: Stable on RA without recent exacerbation Continue PRN albuterol Checked mag -- 1.5, 3gm IV replacement ordered and repeat 1.9 (6) Urinary tract infection: Plan: suspected given UA however cultures current w/o growth (review did get dose abx prior to collection) covered by abx above, ?infected stone. Blood cultures pending she states she is for surgery this upcoming Thursday for her L renal pelvis stone as almost completely blocking her kidney, also known stones on the right. Renal US obtained for eval -- w/o hydro, noted stones as above, large renal pelvic stones now for stent given ongoing issues, L CVA tenderness, n/v (7) Nausea & vomiting: Plan: nausea/vomiting 09/21, LFTs wnl, no RUQ pain but has stones (hx kidney stones as above) improvement in nausea w/ zofran/phenergan as needed no further vomiting since 09/21 KUB w/o obstruction (8) Anxiety: Plan: on buspar, continued per HPI and patient, not taking Paxil, discontinued symptoms appear stable at present but did get dose ativan for MRI as requested TSH wnl (9) Hypomagnesemia: Plan: added to labs, 1.5 and IV replacement ordered repeat wnl and will monitor (10) Vitamin D deficiency: Plan: levels checked in patient w/ recurrent kidney stones for further eval. PTH elevated given [place], [id number] weekly (reports already on such at home) -- continue and f/u outpatient. consider having pt f/u nephrology outpatient but she isn't local and can defer pcp to ref locally once dc (11) Crohn disease: Plan: reported history of such follows with Dr Louis in [place], was to be on q6wks Entyvio but hasn't gotten in about a year due to her job change and not getting the time off occasional BRB on toilet paper but reports hx hemorrhoids and issues w/ straining no abdominal pain RLQ or reports of flair-- but does have nausea, no further vomiting (likely from kidney stones as above) rec she f/u with her gastroentrologist to resume her outpatient treatment Plan continued inpatient stay NPO for intervention with urology for kidney stones Dr Gill consulted in case of any worsening/need for intervention w/ LLE infection Admission and Anticipated Discharge Date Admission Date: September 21, 2022 Supervising Physician Co-Signing Physician Notes PA Supervision Note: I did not personally see or examine the patient today, but I verified all moon points of SHASHA Engel's assessment and plan with the following exceptions/additions: Given worsening leukocytosis and redevelopment of purulent drainge as per Ortho---> add on clindamycin for antitoxin effect in puncture wound. Subjective Eval this morning, erythema about the same. does endorse she didn't elevate the foot very much yesterday, encouraged elevation. MRI completed this morning, messaged orthopedics for review as resulted. Of note, she states she is on weekly Vit D 50,000 and has been on for about a year. She notes her B12 almost non existent as well. She notes she has underlying Crohns disease but hasn't been on treatment for about a year as with her new job and she was on every 6 week Entivio but hasn't gotten that for about a year or so. Message to urology as she states she was seen by a lady this morning and potential add on for stent placement and will keep NPO for now. MM dry and ordered IVF. +nausea but no further vomiting. She has been utilizing Zofran/Phenergan. Physical Exam Physical Exam: Physical Exam: WN/WD obese female sitting up in bed, HEENT: head normocephalic, atraumatic, mm DRY Resp: CTAb, no w/c, on room air CV: RRR, significant m/r/g, no calf tenderness GI: +BS, soft, slight tenderness R flank, positional : no rodas, + LEFT CVA tenderness MSK/Neuro: L foot with erythema, swelling/edema (about the same redness/edema, but no lymphangitic streaking up the leg/worsening) worse on dorsal aspect of foot, opening to plantar surface of foot near 5th toe, increased tenderness to palpation, scant purulent drainage present on dressing, pulses palpable Psych: AOx3 Results & Data Results & Data ([facility]) Vital Signs (Past 12 Hours) Vital Signs Temp Pulse Resp BP Pulse Ox O2 Del Method 09/22/22 07:19 36.6 C 71 16 128/84 97 Room Air Laboratory Results 09/22/22 09/22/22 09/22/22 Range/Units 06:42 06:42 06:42 WBC (4.8-10.8) K/ul RBC (4.20-5.40) M/uL Hgb (12.0-16.0) g/dl Hct (37.0-47.0) % MCV (80.0-100.0) fL MCH (25.0-34.0) pg MCHC (32.0-36.0) g/dL RDW Std Deviation (36.4-46.3) fL RDW Coeff of [place] (11.5-14.5) % Plt Count (130-400) K/uL MPV (9.4-12.4) fL Immature Gran % (Auto) % Neut % (Auto) % Lymph % (Auto) % [place] % (Auto) % Eos % (Auto) % Baso % (Auto) % Neut # (Auto) (1.40-6.50) K/uL Lymph # (Auto) (1.2-3.4) K/uL [place] # (Auto) (0.11-0.59) K/uL Eos # (Auto) (0-0.50) K/uL Baso # (Auto) (0-0.2) K/uL Immature Gran # (Auto) (0.01-0.20) K/uL ESR 42 H (0-20) mm/hr Sodium (136-145) mmol/L Potassium (3.5-5.1) mmol/L Chloride (98-107) mmol/L Carbon Dioxide (21-32) mmol/L Anion Gap (3-11) BUN (6-23) mg/dl Creatinine (0.6-1.2) mg/dl Est Cr Clr Drug Dosing ml/min Est GFR ( Amer) ml/min Est GFR (Non-Af Amer) ml/min BUN/Creatinine Ratio (10-20) Glucose (70-99(Fasting)) mg/dl POC Glucose (70-99) mg/dl Calcium (8.5-10.1) mg/dl Magnesium (1.7-2.4) mg/dl Total Bilirubin (0.2-1.0) mg/dl Direct Bilirubin (0-0.2) mg/dl AST (13-39) U/L ALT (7-52) U/L Alkaline Phosphatase (34-104) U/L C-Reactive Protein Cancelled (0-0.5) mg/dl Total Protein (6.0-8.3) gm/dl Albumin (3.4-5.0) gm/dl PTH Intact 113.9 H (12.0-88.0) pg/ml 09/22/22 09/22/22 09/22/22 Range/Units 06:42 06:42 06:05 WBC 14.00 H (4.8-10.8) K/ul RBC 4.39 (4.20-5.40) M/uL Hgb 13.2 (12.0-16.0) g/dl Hct 39.2 (37.0-47.0) % MCV 89.3 (80.0-100.0) fL MCH 30.1 (25.0-34.0) pg MCHC 33.7 (32.0-36.0) g/dL RDW Std Deviation 39.8 (36.4-46.3) fL RDW Coeff of Louann 12.3 (11.5-14.5) % Plt Count 306 (130-400) K/uL MPV 10.0 (9.4-12.4) fL Immature Gran % (Auto) 0.6 % Neut % (Auto) 77.2 % Lymph % (Auto) 12.1 % [place] % (Auto) 4.8 % Eos % (Auto) 4.8 % Baso % (Auto) 0.5 % Neut # (Auto) 10.81 H (1.40-6.50) K/uL Lymph # (Auto) 1.70 (1.2-3.4) K/uL [place] # (Auto) 0.67 H (0.11-0.59) K/uL Eos # (Auto) 0.67 H (0-0.50) K/uL Baso # (Auto) 0.07 (0-0.2) K/uL Immature Gran # (Auto) 0.08 (0.01-0.20) K/uL ESR (0-20) mm/hr Sodium 138 (136-145) mmol/L Potassium 3.6 (3.5-5.1) mmol/L Chloride 104 (98-107) mmol/L Carbon Dioxide 29 (21-32) mmol/L Anion Gap 5 (3-11) BUN 13 (6-23) mg/dl Creatinine 1.07 (0.6-1.2) mg/dl Est Cr Clr Drug Dosing 91.6 ml/min Est GFR ( Amer) 75.7 ml/min Est GFR (Non-Af Amer) 65.3 ml/min BUN/Creatinine Ratio 12.1 (10-20) Glucose 113 H (70-99(Fasting)) mg/dl POC Glucose 95 (70-99) mg/dl Calcium 9.0 (8.5-10.1) mg/dl Magnesium 1.9 (1.7-2.4) mg/dl Total Bilirubin 0.8 (0.2-1.0) mg/dl Direct Bilirubin 0.2 (0-0.2) mg/dl AST 13 (13-39) U/L ALT 15 (7-52) U/L Alkaline Phosphatase 98 (34-104) U/L C-Reactive Protein 9.22 H (0-0.5) mg/dl Total Protein 7.0 (6.0-8.3) gm/dl Albumin 3.6 (3.4-5.0) gm/dl PTH Intact (12.0-88.0) pg/ml 09/21/22 09/21/22 09/21/22 Range/Units 20:09 17:09 12:05 WBC (4.8-10.8) K/ul RBC (4.20-5.40) M/uL Hgb (12.0-16.0) g/dl Hct (37.0-47.0) % MCV (80.0-100.0) fL MCH (25.0-34.0) pg MCHC (32.0-36.0) g/dL RDW Std Deviation (36.4-46.3) fL RDW Coeff of [place]ann (11.5-14.5) % Plt Count (130-400) K/uL MPV (9.4-12.4) fL Immature Gran % (Auto) % Neut % (Auto) % Lymph % (Auto) % [place] % (Auto) % Eos % (Auto) % Baso % (Auto) % Neut # (Auto) (1.40-6.50) K/uL Lymph # (Auto) (1.2-3.4) K/uL [place] # (Auto) (0.11-0.59) K/uL Eos # (Auto) (0-0.50) K/uL Baso # (Auto) (0-0.2) K/uL Immature Gran # (Auto) (0.01-0.20) K/uL ESR (0-20) mm/hr Sodium (136-145) mmol/L Potassium (3.5-5.1) mmol/L Chloride (98-107) mmol/L Carbon Dioxide (21-32) mmol/L Anion Gap (3-11) BUN (6-23) mg/dl Creatinine (0.6-1.2) mg/dl Est Cr Clr Drug Dosing ml/min Est GFR ( Amer) ml/min Est GFR (Non-Af Amer) ml/min BUN/Creatinine Ratio (10-20) Glucose (70-99(Fasting)) mg/dl POC Glucose 115 H 80 101 H (70-99) mg/dl Calcium (8.5-10.1) mg/dl Magnesium (1.7-2.4) mg/dl Total Bilirubin (0.2-1.0) mg/dl Direct Bilirubin (0-0.2) mg/dl AST (13-39) U/L ALT (7-52) U/L Alkaline Phosphatase (34-104) U/L C-Reactive Protein (0-0.5) mg/dl Total Protein (6.0-8.3) gm/dl Albumin (3.4-5.0) gm/dl PTH Intact (12.0-88.0) pg/ml Diagnostic Findings Renal Ultrasound 09/21/22 08:36 RENAL ULTRASOUND HISTORY: n/v, hx stones, eval pyelo COMPARISON: KUB 09/21/2022. FINDINGS: Right kidney: 12.1 cm. There are 2 stones measuring 9 mm and 5 mm. No hydronephrosis. Focal scarring within the right kidney is noted. Left kidney: 11.6 cm. There are 2 stones measuring 13 mm and 9 mm. A 13 mm stone resides within the renal pelvis. No hydronephrosis. Focal scarring within the upper pole. Bladder: No bladder wall thickening. The bilateral ureteral jets were identified. IMPRESSION: 1. Bilateral nephrolithiasis. The dominant 13 mm stone within the left kidney resides within the left renal pelvis. 2. No hydronephrosis. ACT 112: Negative or not required by law. Electronically signed by: David Peralta M.D. 09/21/2022 10:30 AM KUB X-Ray 09/21/22 08:37 KUB CLINICAL HISTORY: Nausea and vomiting. COMPARISON STUDY: None. FINDINGS: Cholecystectomy clips are incidentally noted. There is no evidence for a bowel obstruction. Contrast within the bladder from recent contrast-enhanced CT is noted. Pelvic calcifications statistically reflect phleboliths. 8 mm calcification projects of the left renal pelvis. There are suspected small bilateral renal calculi. IMPRESSION: 1. Possible 8 mm left renal pelvis calculus. 2. Suspected bilateral nephrolithiasis. 3. Multiple pelvic calcifications. These likely reflect phleboliths although distal ureteral calculi could appear similar. ACT 112: Negative or not required by law. Electronically signed by: Brian Edmondson M.D. 09/21/2022 9:38 AM Foot MRI 09/22/22 07:28 MRI OF THE LEFT FOOT WITHOUT CONTRAST CLINICAL HISTORY: Left foot infection, r/o abscess vs. osteomyelitis COMPARISON STUDY: Left foot CT September 20, 2022. TECHNIQUE: Utilizing a 1.5 Smiley magnet and dedicated coil, multiplanar, multiecho imaging of the left midfoot and forefoot was performed without intravenous or intra-articular contrast. FINDINGS: Alignment of the left midfoot and forefoot is anatomic. Tarsometatarsal joints are intact. There is no evidence for acute osteomyelitis within the left midfoot or forefoot. There is extensive dorsal subcutaneous edema of the left midfoot and forefoot. No joint effusion is identified. Puncture wound of the plantar aspect the left forefoot is again noted. There is adjacent T2 intermediate signal intensity material adjacent to the fourth and fifth metatarsal heads and extending to the base of the left fourth toe. No well-defined fluid collection is identified on this unenhanced examination. There is no MR evidence for tenosynovitis. IMPRESSION: 1. Puncture wound of the left forefoot with adjacent T2 hyperintense material which favors phlegmon and cellulitis. This is most pronounced at the bases of the left fourth and fifth toes. No drainable fluid collection identified on unenhanced exam. 2. No marrow edema to indicate acute osteomyelitis. 3. Extensive dorsal subcutaneous fluid of the left midfoot and forefoot. This could reflect extensive infectious process or edema. ACT 112: Negative or not required by law. Electronically signed by: Brian Edmondson M.D. 09/22/2022 9:31 AM PG Care Time/CCT Total # of Minutes Spent Total Time Spent with Patient: Total time spent is greater than 50% in coordination of care (as documented) at patient's floor/unit and/or counseling patient: Coding Level of Care Code 83211 SUB INP/OBS CARE 3/50MIN Diagnoses Cellulitis of left foot L03.116 Bilateral kidney stones N20.0 Diabetes mellitus E11.9 GERD (gastroesophageal reflux disease) K21.9 Asthma J45.909 Urinary tract infection N39.0 Nausea & vomiting R11.2 Anxiety F41.9 Hypomagnesemia E83.42 Vitamin D deficiency E55.9 Crohn disease K50.90
--- NOTE | 2022-09-22 09:33 | Magnetic Resonance Report ---
MRI OF THE LEFT FOOT WITHOUT CONTRAST CLINICAL HISTORY: Left foot infection, r/o abscess vs. osteomyelitis COMPARISON STUDY: Left foot CT September 20, 2022. TECHNIQUE: Utilizing a 1.5 Smiley magnet and dedicated coil, multiplanar, multiecho imaging of the lef t midfoot and forefoot was performed without intravenous or intra-articular contrast. FINDINGS: Alignment of the left midfoot and forefoot is anatomic. Tarsometatarsal joints are intact. There is no evidence for acute osteomyelitis within the left midfoot or forefoot. There is extensive dorsal subcutaneous edema of the left midfoot and forefoot. No joint effusion is identified. Puncture wound of the plantar aspect the left forefoot is again noted. There is adjacent T2 intermediate sign al intensity material adjacent to the fourth and fifth metatarsal heads and extending to the base of the left fourth toe. No well-defined fluid collection is identified on this unenhanced examination. T here is no MR evidence for tenosynovitis. IMPRESSION: 1. Puncture wound of the left forefoot with adjacent T2 hyperintense material which favors phlegmon a nd cellulitis. This is most pronounced at the bases of the left fourth and fifth toes. No drainable f luid collection identified on unenhanced exam. 2. No marrow edema to indicate acute osteomyelitis. 3. Extensive dorsal subcutaneous fluid of the left midfoot and forefoot. This could reflect extensive infectious process or edema. ACT 112: Negative or not required by law. Electronically signed by: Brian Edmondson M.D. 09/22/2022 9:31 AM
[2022-09-22] MEDS ORDERED: NSS + 20MEQ KCL 20 MEQ/1,000 ML BAG IV SCH (10:45)
--- NOTE | 2022-09-22 10:46 | Urology Progress Note ---
Date of Service September 22, 2022 Assessment & Plan (1) Bilateral kidney stones: Plan: 37-year-old female admitted for cellulitis of left foot. Urology follow-up of bilateral kidney stones. Patient afebrile and hemodynamically stable. Labs reviewedcreatinine 1.07, WBC increased to 14.0, hemoglobin 13.2. Continue to trend labs. Urine culture showed three types of organisms present, all low counts probable skin francisca. Blood cultures no growth x24 hours. Patient is on IV daptomycin, metronidazole, and cefepime for cellulitis. She is pending intervention for stones with her urologist in [place]. She continues to have left flank discomfort and nausea. We discussed options for stone management including observation and symptom management until she follows up with her established urologist. We discussed surgical intervention acutely with a left ureteral stent placement. We discussed ureteral stents in detail. She prefers intervention. She is NPO. Discussed with Dr. Louis, urologist electron gun assembler. Given her persistent left flank pain in the context of a large left renal pelvis stone, will proceed with OR for cystoscopy, Left retrograde pyelogram and Left stent placement. Risks and benefits to be reviewed with patient by Dr. Louis. OR notified. Will cover with her scheduled IV antibiotics preoperatively. Keep NPO for procedure. All questions answered. will follow. Admission and Anticipated Discharge Date Admission Date: September 21, 2022 Subjective Patient seen and examined at bedside this morning. She is awake, alert and sitting up in bed. She reports intermittent bilateral flank pain left greater than right. Nausea, currently managed with Zofran/Phenergan. Voiding spontaneously. No fever or chills. Currently NPO. Review of Systems Constitutional: as per Subjective / HPI Gastrointestinal: as per Subjective / HPI Genitourinary: as per Subjective / HPI Physical Exam Constitutional: well developed, well nourished and + obese; no acute distress and not ill appearing Respiratory: normal respiratory effort; no respiratory distress and no labored breathing Gastrointestinal (Abdomen): Inspection/Auscultation: abdomen normal to inspection; abdomen not distended Musculoskeletal: Head/Neck/Chest: normocephalic and head atraumatic Skin: Left foot with gauze dressings Neurologic: moves all extremities and awake Psychiatric: Orientation: alert and oriented x 3 Genitourinary: no CVA tenderness Results & Data ([facility]) Vital Signs (Past 12 Hours) Vital Signs Temp Pulse Resp BP Pulse Ox O2 Del Method 09/22/22 07:19 36.6 C 71 16 128/84 97 Room Air PG Care Time/CCT Total # of Minutes Spent Total Time Spent with Patient: Total time spent is greater than 50% in coordination of care (as documented) at patient's floor/unit and/or counseling patient: Coding Level of Care Code 71259 SUB INP/OBS CARE 2/35MIN Diagnoses Bilateral kidney stones N20.0
[2022-09-22] MEDS: CEFEPIME 2,000 MG in SYRINGE 0 ML IV SCH ×3 (12:05→23:36)
[2022-09-22] MEDS ORDERED: PROPOFOL IV EMULSION 10 MG/ML 20 ML VIAL IV ONE (13:48)
[2022-09-22] MEDS ORDERED: fentaNYL citrate 100 MCG/2 ML VIAL ONE (13:48)
[2022-09-22] MEDS ORDERED: MIDAZOLAM HCL 1 MG/ML 2ML VIAL ONE (13:48)
[2022-09-22] MEDS ORDERED: ONDANSETRON INJ 2 MG/ML 2 ML VIAL ONE (13:48)
[2022-09-22] MEDS ORDERED: LIDOCAINE 2% MPF LOCAL 5 ML VIAL INFIL ONE (13:48)
--- NOTE | 2022-09-22 13:54 | Anesthesiology Consultation ---
Date of Service September 22, 2022 Assessment & Plan Chart Review Chart Review: Acceptable Risk for Surgery Consults Requested none History Surgery Operation Date: 09/22/22 07:00 Proposed Procedures p Cystoscopy Left Stent Placement - Jim Louis DO Height/Weight Height: 5 ft 4 in Weight: 123.5 kg Allergies Allergy/AdvReac Type Severity Reaction Status Date / Time azithromycin [From Zithromax] Allergy Difficulty Verified 09/20/22 13:38 Breathing meperidine [From Demerol] Allergy Difficulty Verified 09/20/22 13:38 Breathing Penicillins Allergy Difficulty Verified 09/20/22 13:38 Breathing vancomycin Allergy Difficulty Verified 09/20/22 13:38 Breathing Medications Home Medications Medication Instructions Recorded Confirmed Last Taken albuterol sulfate 90 mcg/actuation 1 puff inhalation Q4 PRN Wheezing 09/20/22 09/20/22 Unknown aerosol inhaler buspirone 15 mg tablet 15 mg PO TID 09/20/22 09/20/22 Unknown metformin 500 mg tablet,extended 500 mg PO QDD 09/20/22 09/20/22 09/19/22 release 24 hr omeprazole 40 mg capsule,delayed 40 mg PO DAILY 09/20/22 09/20/22 09/19/22 release Active Medications Generic Name Dose Route Start Last Admin Trade Name Freq PRN Reason Stop Dose Admin Acetaminophen 650 mg 09/20/22 23:00 09/22/22 10:53 Acetaminophen 325 Mg Tab PO 10/20/22 22:59 650 mg Q6H LACY Administration Buspirone HCl 15 mg 09/20/22 21:00 09/22/22 07:31 Buspirone 15 Mg Tab PO 10/20/22 20:59 15 mg TID LACY Administration Enoxaparin Sodium 40 mg 09/20/22 16:15 09/22/22 05:10 Enoxaparin Inj 40 Mg/0.4 Ml Syr SQ 10/20/22 16:14 Not Given Q12H LACY Ergocalciferol 50,000 units 09/22/22 08:00 09/22/22 09:24 Ergocalciferol 50,000 Units 1250 Mcg Cap PO 10/22/22 07:59 50,000 units Q7D@0800 LACY Administration Daptomycin 325 mg/ Syringe 6.5 mls @ 3.25 mls/min 09/20/22 14:30 09/21/22 15:49 IV 09/27/22 14:29 3.25 mls/min Q24H LACY Administration Protocol Cefepime HCl 2,000 mg/ Syringe 20 mls @ 5 mls/min 09/21/22 00:00 09/22/22 12:05 IV 09/28/22 00:00 5 mls/min Q12H LACY Administration Protocol Metronidazole 500 mg in 100 mls @ 100 mls/hr 09/20/22 22:00 09/22/22 07:07 Flagyl IV 09/27/22 21:59 Infused Q8H LACY Infusion Promethazine HCl 6.25 mg/ 50.25 mls @ 201 mls/hr 09/21/22 14:05 09/22/22 06:30 Sodium Chloride IV 10/21/22 14:04 Infused Q6H PRN Infusion Nausea And Vomiting Famotidine 20 mg/ Syringe 5 mls @ 2.5 mls/min 09/22/22 09:00 09/22/22 07:35 IV 10/22/22 08:59 2.5 mls/min QAM LACY Administration Potassium Chloride/Sodium Chloride 20 meq in 1,000 mls @ 100 mls/hr 09/22/22 10:45 09/22/22 10:54 Normal Saline W/20 Meq Kcl IV 09/22/22 20:44 100 mls/hr .Q10H LACY Administration Protocol Ibuprofen 600 mg 09/21/22 02:17 09/22/22 00:07 Ibuprofen 600 Mg Tab PO 10/21/22 02:16 600 mg Q8H PRN Administration Pain Insulin Aspart 0 units 09/22/22 06:00 09/22/22 12:02 Insulin Aspart Per Unit SC 10/22/22 05:59 Not Given Q6 LACY Lactobacillus Acidophilus 2 cap 09/21/22 09:00 09/22/22 07:32 Advanced Probiotic 1250 Mg Capsule PO 10/21/22 08:59 2 cap DAILY LACY Administration Morphine Sulfate 2 mg 09/20/22 14:54 09/22/22 09:47 Morphine Sulfate 2 Mg/Ml Carp IV 10/04/22 14:53 2 mg Q3H PRN Administration Pain (4,5,6+) Ondansetron HCl 4 mg 09/21/22 08:35 09/22/22 03:16 Ondansetron Inj 2 Mg/Ml 2 Ml Vial IV 10/21/22 08:34 4 mg Q4H PRN Administration Nausea Oxycodone HCl 5 mg 09/21/22 08:11 09/22/22 07:35 Oxycodone Hcl Ir 5 Mg Tab (Immediate Release) PO 10/05/22 08:10 5 mg Q4H PRN Administration Pain (4,5,6+) Pantoprazole Sodium 40 mg 09/21/22 09:00 09/22/22 07:36 Pantoprazole 40 Mg Tab PO 10/21/22 08:59 40 mg DAILY LACY Administration NPO Date Last Intake of Fluids: 09/21/22 Time Last Intake of Fluids: 23:30 Date Last Intake of Solids: 09/21/22 Time Last Intake of Solids: 23:30 Past Medical History Medical History (Updated 09/22/22 @ 10:43 by Lulu Engel PA-C) Diabetes mellitus Past Surgical History Surgical History (Updated 09/22/22 @ 12:45 by Nay Juarez RN) History of hysterectomy Social History Smoking Status: Never smoker Do You Dip or Chew Tobacco: No Hx Alcohol Use: No Hx Substance Use: No substance use type: does not use Physical Exam Vital Signs Last Vital Signs Temp 36.8 C 09/22/22 12:46 Pulse 84 09/22/22 12:46 Resp 18 09/22/22 12:46 BP 151/108 H 09/22/22 12:46 Pulse Ox 100 09/22/22 12:46 O2 Del Method Room Air 09/22/22 12:46 Testing Laboratory Results 09/22/22 06:42 09/22/22 06:42 PT 10.5 Seconds (9.0-12.0) 09/21/22 08:00 INR 1.0 (0.9-1.1) 09/21/22 08:00 Hemoglobin A1c 5.7 % (4.5-5.6) H 09/21/22 08:00 Urine Color Yellow 09/20/22 13:09 Urine Appearance Cloudy (Clear) A 09/20/22 13:09 Urine pH 5.5 (4.5-7.5) 09/20/22 13:09 Ur Specific [place] 1.036 (1.000-1.030) H 09/20/22 13:09 Urine Protein 2+ (Negative) H 09/20/22 13:09 Urine Glucose (UA) Negative (Negative) 09/20/22 13:09 Urine Ketones Trace (Negative) H 09/20/22 13:09 Urine Nitrite Negative (Negative) 09/20/22 13:09 Ur Leukocyte Esterase 2+ (Negative) H 09/20/22 13:09 Urine WBC (Auto) >30 /hpf (0-5) H 09/20/22 13:09 Urine RBC (Auto) >30 /hpf (0-4) H 09/20/22 13:09 U Hyaline Cast (Auto) 10-30 /lpf (0-5) H 09/20/22 13:09 U Epithel Cells (Auto) 20-30 /lpf (0-5) H 09/20/22 13:09 Urine Bacteria (Auto) 1+ (Negative) H 09/20/22 13:09 09/20/22 13:49 Gram Stain - Final Foot,Left Aerobic and Anaerobic Culture - Preliminary Group A Beta Strep Staphylococcus species Staphylococcus species#2 09/20/22 12:05 Aerobic Blood Culture - Preliminary Blood No growth in Aerobic bottle after 48 hours. Anaerobic Blood Culture - Preliminary No growth in Anaerobic bottle after 48 hours. 09/20/22 11:46 Aerobic Blood Culture - Preliminary Blood No growth in Aerobic bottle after 48 hours. Anaerobic Blood Culture - Preliminary No growth in Anaerobic bottle after 48 hours. 09/20/22 13:09 Urine Culture - Final Urine,Clean Catch Three types of organisms present, all low counts probable skin francisca. No further identifications or sensitivities to follow. 09/22/22 09/22/22 11:59 06:05 POC Glucose 118 H 95
[2022-09-22] MEDS ORDERED: HYDROmorphone INJ 2 MG/ML SYR/VIAL IV PRN (13:56)
[2022-09-22] MEDS ORDERED: PROMETHAZINE HCL 12.5 MG in SODIUM CHLORIDE 0.9% 50 ML IV PRN (13:56)
[2022-09-22] MEDS ORDERED: ONDANSETRON INJ 2 MG/ML 2 ML VIAL IV PRN (13:56)
[2022-09-22] MEDS ORDERED: ATROPINE SULFATE 0.1 MG/ML 10ML SYR IV PRN (13:56)
[2022-09-22] MEDS ORDERED: ePHEDrine sulfate 50 MG/ML AMP IV PRN (13:56)
[2022-09-22] MEDS ORDERED: fentaNYL citrate 100 MCG/2 ML VIAL IV PRN (13:56)
[2022-09-22] MEDS ORDERED: PROMETHAZINE HCL INJ 25 MG/ML 1 ML VIAL ONE ×2 (14:15→14:20)
[2022-09-22] MEDS: DAPTOmycin 325 MG in SYRINGE 0 ML IV SCH (14:18)
--- NOTE | 2022-09-22 15:01 | Operative Report ---
PG Post Operative Report Pre & Post Diagnosis Large Left Renal Stones Same Operation Date: 09/22/22 07:00 <No data on this case meets the specified criteria> I identified the patient and participated in the time-out.: Yes Procedure Cystoscopy with left retrograde pyelogram and stent placement. Operation Date: 09/22/22 07:00 <No data on this case meets the specified criteria> Surgeon Jim Louis, II, DO Mri Tech None Estimated Blood Loss 0 Findings Consistent with Post-Op Diagnosis Stent placed in good position. Specimens None Drains 6 Fr Multilength Anesthesia Type MAC Complications none Disposition Disposition: Recovery Room Indications Patient with obstruction. Risks and benefits discussed at length. Description of Procedure Patient was consented and brought back to the operating room. Patient was placed under anesthesia in the supine position and moved to the dorsal lithotomy position. Patient was prepped and draped in the regular sterile fashion. A time out was completed. A 30degree Cystoscope was placed into the bladder and the entire bladder was examined. The UO's were identified. The UO was cannulized with a catheter and a retrograde pyelogram was completed. A wire was then placed. With the wire in place, a 6 Fr Double J stent was placed. It was confirmed with fluoroscopy. With the stent in place, the bladder was emptied. The scope was removed. The patient was cleaned, aroused from anesthesia, and transferred to the pacu in stable condition having tolerated the procedure well with no complications. I was present and participated in all aspects of the procedure. The patient will be monitored in the PACU until transferred. Patient follows with urology in [place]. Has plan for stone treatment in the [facility] future with them. Can maintain stent until plans finalize for definitive treatment of stones. I attest to the content of the Intraoperative Record and any orders documented therein. Any exceptions are noted below.
[2022-09-22] MEDS ORDERED: DIATRIZOATE MEGLUMINE 30% 100ML VIAL INSTIL ONE (15:16)
--- NOTE | 2022-09-22 15:34 | Anesthesiology Progress Note ---
Date of Service September 22, 2022 Anesthesia Post Procedure Vital Signs Vital Signs: Temp Pulse Pulse Resp BP BP Pulse Ox 09/22/22 15:25 87 24 142/93 H 95 09/22/22 15:15 95 H 23 145/90 H 94 09/22/22 15:08 36.7 C 106 H 18 142/98 H 95 09/22/22 12:46 36.8 C 84 18 151/108 H 100 09/22/22 07:19 36.6 C 71 16 128/84 97 09/21/22 20:55 36.9 C 87 18 139/90 95 O2 Del Method 09/22/22 15:25 Room Air 09/22/22 15:15 Room Air 09/22/22 15:08 Room Air 09/22/22 12:46 Room Air 09/22/22 07:19 Room Air 09/21/22 20:55 Room Air Pain Intensity Left Foot: Pain Intensity: 8 Left Flank: Pain Intensity: 5 Transfer of Care Handoff Completed per policy Notes Mental Status: alert / awake / arousable Patient Amnestic to Procedure: Yes Nausea / Vomiting: adequately controlled Pain: adequately controlled Airway Patency, RR, SpO2: stable & adequate BP & HR: stable & adequate Hydration State: stable & adequate Anesthetic Complications: no major complications apparent
--- NOTE | 2022-09-22 17:59 | Fluoroscopy Report ---
FL retrograde includes kub CLINICAL HISTORY: Left ureteral stent placement. COMPARISON STUDY: KUB 09/21/2022. FLUOROSCOPY TIME: 11 seconds FLUOROSCOPY IMAGES: 4 Ka,r: 5.5 mGy FINDINGS: Retrograde opacification of left renal collecting system followed by placement of a left ur eteral stent. The distal stent is obscured. The remaining stent appears in good position. IMPRESSION: Fluoroscopic assistance as above. ACT 112: Negative or not required by law. Electronically signed by: David Peralta M.D. 09/22/2022 5:58 PM
[2022-09-23] MEDS: CLINDAMYCIN/D5W 600 MG/50 ML BAG IV SCH ×4 (00:24→23:05)
[2022-09-23] MEDS: MoRPHine SULFATE 2 MG/ML CARP IV PRN (00:29)
[2022-09-23] MEDS: oxyCODONE HCL IR 5 MG TAB (IMMEDIATE RELEASE) PO PRN ×4 (04:08→19:36)
[2022-09-23] MEDS: ONDANSETRON INJ 2 MG/ML 2 ML VIAL IV PRN ×2 (04:08→21:44)
[2022-09-23] MEDS: IBUPROFEN 600 MG TAB PO PRN ×2 (05:49→16:14)
[2022-09-23] MEDS: ACETAMINOPHEN 325 MG TAB PO SCH ×4 (05:50→23:04)
[2022-09-23] MEDS: ENOXAPARIN INJ 40 MG/0.4 ML SYR SQ SCH ×2 (05:51→17:38)
[2022-09-23] MEDS: metroNIDAZOLE 500 MG/100 ML BAG IV SCH ×3 (06:32→21:44)
[2022-09-23 08:00] LABS: Basophils # (auto) 0.07 K/uL (0-0.2); Basophils % (auto) 0.5 %; Eosinophils % (auto) 5.3 %; Hematocrit (blood only) 37.8 % (37.0-47.0); Hemoglobin 12.5 g/dl (12.0-16.0); Immature Granulocytes # (auto) 0.07 K/uL (0.01-0.20); Immature Granulocytes % (auto) 0.5 %; Lymphocytes # (auto) 1.69 K/uL (1.2-3.4); Lymphocytes % (auto) 12.9 %; Mean Corpuscular Hemoglobin 29.6 pg (25.0-34.0); Mean Corpuscular Hgb Conc 33.1 g/dL (32.0-36.0); Mean Corpuscular Volume 89.6 fL (80.0-100.0); Mean Platelet Volume 9.9 fL (9.4-12.4); Monocytes # (auto) 0.83 K/uL (0.11-0.59); Monocytes % (auto) 6.3 %; Neutrophils # (auto) 9.76 K/uL (1.40-6.50); Neutrophils % (auto) 74.5 %; Platelet Count 297 K/uL (130-400); RDW Coefficient of Variation 12.4 % (11.5-14.5); RDW Standard Deviation 40.5 fL (36.4-46.3); Red Blood Count 4.22 M/uL (4.20-5.40); White Blood Count 13.12 K/ul (4.8-10.8)
[2022-09-23 08:06] LABS: Calcium 8.6 mg/dl (8.5-10.1); Est GFR (African American) 82.2 ml/min; Est GFR (Non-African American) 70.9 ml/min; Magnesium 1.8 mg/dl (1.7-2.4); Potassium 3.7 mmol/L (3.5-5.1)
--- NOTE | 2022-09-23 08:34 | Urology Progress Note ---
Date of Service September 23, 2022 Assessment & Plan (1) Bilateral kidney stones: Plan: - Pt POD#1 s/p cystoscopy and left ureteral stent placement. - Doing well, progressing as expected. - Afebrile, lab work reviewed - creatinine 1.00, WBC 13.12. - Tolerating left ureteral stent with minimal bother. - Okay to d/c from [facility] when medically stable. - Recommend d/c with Tamsulosin, prn Pyridium and prn pain medication for stent management. - Expected clinical course reviewed, all questions answered. - She can follow-up with her urologist in [place] or can follow-up with our service for definitive stone management. - will sign off. Admission and Anticipated Discharge Date Admission Date: September 21, 2022 Subjective Patient seen and examined at bedside this morning. She is asleep and resting in bed, arouses easily to her name. Overall feeling better today. Denies flank discomfort. No nausea. Voiding without difficulty. No dysuria or hematuria. No fever or chills. Review of Systems Constitutional: as per Subjective / HPI Gastrointestinal: as per Subjective / HPI Genitourinary: as per Subjective / HPI Physical Exam Constitutional: well developed, well nourished and + obese; no acute distress and not ill appearing Respiratory: normal respiratory effort; no respiratory distress and no labored breathing Gastrointestinal (Abdomen): Inspection/Auscultation: abdomen normal to inspection; abdomen not distended Musculoskeletal: Head/Neck/Chest: normocephalic and head atraumatic Skin: Left foot with gauze dressings Neurologic: moves all extremities and awake Psychiatric: Orientation: alert and oriented x 3 Results & Data ([facility]) Vital Signs (Past 12 Hours) Vital Signs Temp Pulse Resp BP BP Pulse Ox O2 Del Method 09/23/22 08:00 36.5 C 82 20 137/87 94 Room Air 09/23/22 07:30 Room Air 09/23/22 04:30 37.0 C 85 16 131/84 95 Room Air 09/23/22 00:26 78 98 Room Air 09/23/22 00:23 37.0 C 88 18 108/74 93 Room Air PG Care Time/CCT Total # of Minutes Spent Total Time Spent with Patient: Total time spent is greater than 50% in coordination of care (as documented) at patient's floor/unit and/or counseling patient: Coding Level of Care Code 81656 SUB INP/OBS CARE Diagnoses Bilateral kidney stones N20.0
[2022-09-23] MEDS: FAMOTIDINE 20 MG in SYRINGE 3 ML IV SCH (09:08)
[2022-09-23] MEDS: busPIRone 15 MG TAB PO SCH ×3 (09:21→21:44)
[2022-09-23] MEDS: ADVANCED PROBIOTIC 1250 MG CAPSULE PO SCH (09:21)
[2022-09-23] MEDS: INSULIN ASPART PER UNIT SC SCH ×4 (09:21→21:37)
[2022-09-23] MEDS: PANTOprazole 40 MG TAB PO SCH (09:22)
--- NOTE | 2022-09-23 09:45 | Orthopedic Progress Note ---
Date of Service September 23, 2022 Assessment & Plan (1) Cellulitis of left foot: (2) Abscess: Plan Left diabetic foot infection with cellulitis Concern for development of abscess vs. osteomyelitis -MRI done yesterday, no evidence of abscess or osteomyelitis. -Continue IV antibiotics at this time. -Dressing changed at bedside this morning. -Spoke with admitting service, they have consulted Dr. Gill to further assess wound and possible I&D of left foot. Admission and Anticipated Discharge Date Admission Date: September 21, 2022 Subjective Patient seen and examined at bedside this morning. Continues to have pain at the base of her left foot at the wound site. Dressing in place that was placed by wound nursing. Wound cultures positive for Staph aureus and she has been receiving IV antibiotics. Denies fevers or chills, she remains afebrile, WBC is slightly downtrending to 13 today Physical Exam Physical Exam: Awake and alert, resting in bed at time of exam. Left foot with dressing in place. Dressing removed and there was noted erythema, edema, and gross amount of purulent discharge over the puncture wound. Significant TPP over the proximal portion of the 5th toe and 5th metatarsal head. Nontender to the ankle. Results & Data ([facility]) Vital Signs (Past 12 Hours) Vital Signs Temp Pulse Resp BP BP Pulse Ox O2 Del Method 09/23/22 08:00 36.5 C 82 20 137/87 94 Room Air 09/23/22 07:30 Room Air 09/23/22 04:30 37.0 C 85 16 131/84 95 Room Air 09/23/22 00:26 78 98 Room Air 09/23/22 00:23 37.0 C 88 18 108/74 93 Room Air Laboratory Results Laboratory Results WBC 13.12 K/ul (4.8-10.8) H 09/23/22 07:16 RBC 4.22 M/uL (4.20-5.40) 09/23/22 07:16 Hgb 12.5 g/dl (12.0-16.0) 09/23/22 07:16 Hct 37.8 % (37.0-47.0) 09/23/22 07:16 MCV 89.6 fL (80.0-100.0) 09/23/22 07:16 MCH 29.6 pg (25.0-34.0) 09/23/22 07:16 MCHC 33.1 g/dL (32.0-36.0) 09/23/22 07:16 RDW Std Deviation 40.5 fL (36.4-46.3) 09/23/22 07:16 RDW Coeff of Louann 12.4 % (11.5-14.5) 09/23/22 07:16 Plt Count 297 K/uL (130-400) 09/23/22 07:16 MPV 9.9 fL (9.4-12.4) 09/23/22 07:16 Immature Gran % (Auto) 0.5 % 09/23/22 07:16 Neut % (Auto) 74.5 % 09/23/22 07:16 Lymph % (Auto) 12.9 % 09/23/22 07:16 [place] % (Auto) 6.3 % 09/23/22 07:16 Eos % (Auto) 5.3 % 09/23/22 07:16 Baso % (Auto) 0.5 % 09/23/22 07:16 Neut # (Auto) 9.76 K/uL (1.40-6.50) H 09/23/22 07:16 Lymph # (Auto) 1.69 K/uL (1.2-3.4) 09/23/22 07:16 [place] # (Auto) 0.83 K/uL (0.11-0.59) H 09/23/22 07:16 Eos # (Auto) 0.70 K/uL (0-0.50) H 09/23/22 07:16 Baso # (Auto) 0.07 K/uL (0-0.2) 09/23/22 07:16 Immature Gran # (Auto) 0.07 K/uL (0.01-0.20) 09/23/22 07:16 ESR 42 mm/hr (0-20) H 09/22/22 06:42 PT 10.5 Seconds (9.0-12.0) 09/21/22 08:00 INR 1.0 (0.9-1.1) 09/21/22 08:00 Sodium 138 mmol/L (136-145) 09/23/22 07:16 Potassium 3.7 mmol/L (3.5-5.1) 09/23/22 07:16 Chloride 106 mmol/L (98-107) 09/23/22 07:16 Carbon Dioxide 27 mmol/L (21-32) 09/23/22 07:16 Anion Gap 5 (3-11) 09/23/22 07:16 BUN 13 mg/dl (6-23) 09/23/22 07:16 Creatinine 1.00 mg/dl (0.6-1.2) 09/23/22 07:16 Est Cr Clr Drug Dosing 98.0 ml/min 09/23/22 07:16 Est GFR ( Amer) 82.2 ml/min 09/23/22 07:16 Est GFR (Non-Af Amer) 70.9 ml/min 09/23/22 07:16 BUN/Creatinine Ratio 13.0 (10-20) 09/23/22 07:16 Glucose 112 mg/dl (70-99(Fasting)) H 09/23/22 07:16 POC Glucose 111 mg/dl (70-99) H 09/23/22 08:16 Estimat Average Glucose 117 mg/dl 09/21/22 08:00 Hemoglobin A1c 5.7 % (4.5-5.6) H 09/21/22 08:00 Lactate 0.9 mmol/L (0.4-2.0) 09/20/22 11:46 Calcium 8.6 mg/dl (8.5-10.1) 09/23/22 07:16 Magnesium 1.8 mg/dl (1.7-2.4) 09/23/22 07:16 Total Bilirubin 0.8 mg/dl (0.2-1.0) 09/22/22 06:42 Direct Bilirubin 0.2 mg/dl (0-0.2) 09/22/22 06:42 AST 13 U/L (13-39) 09/22/22 06:42 ALT 15 U/L (7-52) 09/22/22 06:42 Alkaline Phosphatase 98 U/L (34-104) 09/22/22 06:42 C-Reactive Protein 9.22 mg/dl (0-0.5) H 09/22/22 06:42 C-Reactive Protein Cancelled 09/22/22 06:42 Total Protein 7.0 gm/dl (6.0-8.3) 09/22/22 06:42 Albumin 3.6 gm/dl (3.4-5.0) 09/22/22 06:42 25-OH Vitamin D Total 10.8 ng/ml (30-100) L 09/21/22 09:23 Procalcitonin 0.09 ng/ml (0-0.5) 09/20/22 11:58 TSH 3.998 uIu/ml (0.300-4.500) 09/21/22 09:23 PTH Intact 113.9 pg/ml (12.0-88.0) H 09/22/22 06:42 Urine Color Yellow 09/20/22 13:09 Urine Appearance Cloudy (Clear) A 09/20/22 13:09 Urine pH 5.5 (4.5-7.5) 09/20/22 13:09 Ur Specific [place] 1.036 (1.000-1.030) H 09/20/22 13:09 Urine Protein 2+ (Negative) H 09/20/22 13:09 Urine Glucose (UA) Negative (Negative) 09/20/22 13:09 Urine Ketones Trace (Negative) H 09/20/22 13:09 Urine Blood 3+ (Negative) H 09/20/22 13:09 Urine Nitrite Negative (Negative) 09/20/22 13:09 Urine Bilirubin Negative (Negative) 09/20/22 13:09 Urine Urobilinogen Negative (Negative) 09/20/22 13:09 Ur Leukocyte Esterase 2+ (Negative) H 09/20/22 13:09 Urine WBC (Auto) >30 /hpf (0-5) H 09/20/22 13:09 Urine RBC (Auto) >30 /hpf (0-4) H 09/20/22 13:09 U Hyaline Cast (Auto) 10-30 /lpf (0-5) H 09/20/22 13:09 U Epithel Cells (Auto) 20-30 /lpf (0-5) H 09/20/22 13:09 Urine Bacteria (Auto) 1+ (Negative) H 09/20/22 13:09 SARS-CoV-2, RNA, NAAT NEGATIVE (NEGATIVE) 09/20/22 12:[address] 09/20/22 11:[address] WITH CONTRAST CLINICAL HISTORY: Left foot pain and swelling following stepping on a nail. Possible abscess or foreign body. COMPARISON STUDY: No previous studies for comparison. TECHNIQUE: Axial images of the left foot were obtained following intravenous injection of 94 cc of Optiray 320 IV. Sagittal and coronal reconstructions were viewed. Automated exposure control was utilized for the study. A dose lowering technique was utilized adhering to the principles of ALARA. FINDINGS: Alignment of the left foot is anatomic. Posterior calcaneal spurring with calcifications within the distal Achilles are incidentally noted. There is no acute fracture within the left foot. No radiopaque foreign bodies are present. A marker was placed on the skin at site of recent puncture wound. Associated skin thickening is present. There is moderate associated subcutaneous stranding with fluid along the plantar aspect of the left forefoot, at the level of the bases of the left fourth and fifth toes. There is possible tiny rim- enhancing fluid collections adjacent to the left fifth metatarsal head measuring up to 2 mm. No drainable fluid collection is present. The soft tissue swelling extends toward the left fourth and fifth metatarsophalangeal joints. No bony erosion is identified. Dorsal subcutaneous stranding of the left foot is also noted. Tarsometatarsal joints are intact. IMPRESSION: No radiopaque foreign body. No fracture within the left foot. Puncture wound of the plantar aspect of the left forefoot. Associated skin thickening and inflammation consistent with cellulitis which extends toward the left fourth and fifth metatarsophalangeal joints. A few possible tiny abscesses adjacent to the left fifth metatarsal head, as described above, measuring up to 2 mm. No drainable fluid collections. Dorsal subcutaneous stranding could reflect proximal extension of the infectious process. No CT evidence for tenosynovitis. No evidence for acute osteomyelitis. Foot MRI 09/22/22 07:28 MRI OF THE LEFT FOOT WITHOUT CONTRAST CLINICAL HISTORY: Left foot infection, r/o abscess vs. osteomyelitis COMPARISON STUDY: Left foot CT September 20, 2022. TECHNIQUE: Utilizing a 1.5 Smiley magnet and dedicated coil, multiplanar, multiecho imaging of the left midfoot and forefoot was performed without intravenous or intra-articular contrast. FINDINGS: Alignment of the left midfoot and forefoot is anatomic. Tarsometatarsal joints are intact. There is no evidence for acute osteomyelitis within the left midfoot or forefoot. There is extensive dorsal subcutaneous edema of the left midfoot and forefoot. No joint effusion is identified. Puncture wound of the plantar aspect the left forefoot is again noted. There is adjacent T2 intermediate signal intensity material adjacent to the fourth and fifth metatarsal heads and extending to the base of the left fourth toe. No well-defined fluid collection is identified on this unenhanced examination. There is no MR evidence for tenosynovitis. IMPRESSION: 1. Puncture wound of the left forefoot with adjacent T2 hyperintense material which favors phlegmon and cellulitis. This is most pronounced at the bases of the left fourth and fifth toes. No drainable fluid collection identified on unenhanced exam. 2. No marrow edema to indicate acute osteomyelitis. 3. Extensive dorsal subcutaneous fluid of the left midfoot and forefoot. This could reflect extensive infectious process or edema. Electronically signed by: David Peralta M.D. 09/22/2022 5:58 PM
[2022-09-23] MEDS: CEFEPIME 2,000 MG in SYRINGE 0 ML IV SCH ×2 (11:52→23:05)
--- NOTE | 2022-09-23 20:33 | Hospitalist Progress Note ---
Date of Service September 23, 2022 Assessment & Plan (1) Cellulitis of left foot: Plan: 2nd to puncture wound from a nail from a piece of furniture. s/p I/D done of tiny abscess on foot in the ER - culture grew GBS + MSSA. can stop daptomycin. unfortunately the foot has worsened and probably has recurrent developing abscess v phlegmon. cont IV cefepime + clindamycin but hopefully can narrow this soon to IV ancef or similar (Has PCN allergy, but tolerating the cefepime). await I/D in OR tomorrow before narrowing since the foot worsened over the last few days despite seemingly appropriate abx). (2) Bilateral kidney stones: Plan: POD #1 - s/p left sided ureteral stent placement. b/l stones with larger stone on left. had been having flank pain on left hence the stent placement. typically follows with urology in [place]. appreciate urology assistance. (3) Diabetes mellitus: Plan: excellent control novolog SSI hba1c 5.7% (4) GERD (gastroesophageal reflux disease): Plan: Continue PPI Cont H2 adam controlled (5) Asthma: Plan: Stable on RA Continue PRN albuterol (6) Urinary tract infection: Plan: urine cx negative but will presume there is UTI abx for #1 will suffice (7) Nausea & vomiting: Plan: resolved as of 09/21 (8) Anxiety: Plan: controlled w/ buspar TSH wnl (9) Hypomagnesemia: Plan: replaced resolved (10) Vitamin D deficiency: Plan: 25-OH vit D level = 10.8 cont ergocalciferol 50,000 units qweekly (11) Crohn disease: Plan: reported history of such follows with Dr Louis in [place], was to be on q6wks Entyvio but hasn't gotten in about a year due to her job change and not getting the time off no flare in quite some time regardless needs to re-establish care with [place] [facility] (12) Morbid obesity with BMI of 45.0-49.9, adult: Plan: BMI 46.7 Plan DVT proph - lovenox BID due to morbid obesity appreciate Dr Gill's consultation NPO after MALINDA grijalva for intervention on left foot tomorrow Admission and Anticipated Discharge Date Admission Date: September 21, 2022 Subjective patient with left foot pain but no abd pain, flank pain or back pain eating fine no fevers when she ambulates she avoids bearing weight on the forefoot/toes voiding w/o difficulty Review of Systems Review of Systems: gen - no fevers or chills cv - no chest pain pulm - no dyspnea GI - no diarrhea or N/V Physical Exam Physical Exam: gen - obese, NAD neck - no JVD mouth - MMM heart - RRR, s1 s2, no murmur lungs - CTA b/l back - no flank tenderness to palpation abd - soft NT ND BS+ vascular - pulses 2+ b/l feet skin - left foot dressings intact; however, puncture site is visible on plantar surface near 4th/5th metatarsal head region; erythema in this region extending to the webspace of 4th/5th toes; erythema then extends to the dorsum of foot near the 4th/5th toes; tender in this region ext - no generalized edema b/l ankles Results & Data Results & Data ([facility]) Vital Signs (Past 12 Hours) Vital Signs Temp Pulse Resp BP Pulse Ox O2 Del Method 09/23/22 15:00 36.5 C 70 16 121/82 97 Room Air 09/23/22 11:26 36.9 C 82 18 115/79 94 Room Air Laboratory Results Laboratory Results - last 48 hr 09/22/22 09/22/22 09/22/22 11:59 15:30 17:02 WBC RBC Hgb Hct MCV MCH MCHC RDW Std Deviation RDW Coeff of Louann Plt Count MPV Immature Gran % (Auto) Neut % (Auto) Lymph % (Auto) [place] % (Auto) Eos % (Auto) Baso % (Auto) Neut # (Auto) Lymph # (Auto) [place] # (Auto) Eos # (Auto) Baso # (Auto) Immature Gran # (Auto) Sodium Potassium Chloride Carbon Dioxide Anion Gap BUN Creatinine Est Cr Clr Drug Dosing Est GFR ( Amer) Est GFR (Non-Af Amer) BUN/Creatinine Ratio Glucose POC Glucose 118 H 85 87 Calcium Magnesium 09/22/22 09/23/22 09/23/22 20:31 07:16 07:16 WBC 13.12 H RBC 4.22 Hgb 12.5 Hct 37.8 MCV 89.6 MCH 29.6 MCHC 33.1 RDW Std Deviation 40.5 RDW Coeff of Louann 12.4 Plt Count 297 MPV 9.9 Immature Gran % (Auto) 0.5 Neut % (Auto) 74.5 Lymph % (Auto) 12.9 [place] % (Auto) 6.3 Eos % (Auto) 5.3 Baso % (Auto) 0.5 Neut # (Auto) 9.76 H Lymph # (Auto) 1.69 [place] # (Auto) 0.83 H Eos # (Auto) 0.70 H Baso # (Auto) 0.07 Immature Gran # (Auto) 0.07 Sodium 138 Potassium 3.7 Chloride 106 Carbon Dioxide 27 Anion Gap 5 BUN 13 Creatinine 1.00 Est Cr Clr Drug Dosing 98.0 Est GFR ( Amer) 82.2 Est GFR (Non-Af Amer) 70.9 BUN/Creatinine Ratio 13.0 Glucose 112 H POC Glucose 107 H Calcium 8.6 Magnesium 1.8 09/23/22 09/23/22 09/23/22 08:16 11:51 16:46 WBC RBC Hgb Hct MCV MCH MCHC RDW Std Deviation RDW Coeff of Louann Plt Count MPV Immature Gran % (Auto) Neut % (Auto) Lymph % (Auto) [place] % (Auto) Eos % (Auto) Baso % (Auto) Neut # (Auto) Lymph # (Auto) [place] # (Auto) Eos # (Auto) Baso # (Auto) Immature Gran # (Auto) Sodium Potassium Chloride Carbon Dioxide Anion Gap BUN Creatinine Est Cr Clr Drug Dosing Est GFR ( Amer) Est GFR (Non-Af Amer) BUN/Creatinine Ratio Glucose POC Glucose 111 H 120 H 104 H Calcium Magnesium Diagnostic Findings culture - wound - left foot - GBS + MSSA PG Care Time/CCT Total # of Minutes Spent Total Time Spent with Patient: Total time spent is greater than 50% in coordination of care (as documented) at patient's floor/unit and/or counseling patient: Coding Level of Care Code 35319 SUB INP/OBS CARE 2/35MIN Diagnoses Cellulitis of left foot L03.116 Bilateral kidney stones N20.0 Diabetes mellitus E11.9 GERD (gastroesophageal reflux disease) K21.9 Asthma J45.909 Urinary tract infection N39.0 Nausea & vomiting R11.2 Anxiety F41.9 Hypomagnesemia E83.42 Vitamin D deficiency E55.9 Crohn disease K50.90 Morbid obesity with BMI of 45.0-49.9, adult E66.01; Z68.42
--- NOTE | 2022-09-23 21:55 | Consultation Report ---
DATE OF CONSULTATION: 09/23/2022 HISTORY OF PRESENT ILLNESS: This is a 37-year-old female seen at the request of Dr. Kwasi Morales and Dr. Nicolás Banks with prior consultation by Dr. Ellsworth. Apparently, the patient was at home in her normal state of health, and apparently, her daughter had broken a dresser, there were nails on th e floor in the bathroom. She stepped on one of the nails, it punctured the left lateral forefoot on the plantar aspect of left foot. She had pain, some bleeding and then this occurred on 09/17/2022. She had progressive swelling, erythema, tenderness and redness of the foot. She presented to [facility] ED from an urgent care clinic. She was noted to have leukocytosis with left sh ift of 10. Radiographs were obtained and noted to have no foreign body. She had a CT of the left jesus t with contrast read as no radiopaque foreign body, no fracture, but a puncture wound at the plantar aspect of the left forefoot with associated skin thickening and inflammation consistent with cellulit is, which extended toward the left fourth and fifth metatarsophalangeal joints. A few possible tiny abscesses adjacent to the left fifth metatarsal head were described, measuring up to 2 mm without not iceable drainable fluid collections. No CT evidence for tenosynovitis. No evidence for acute osteom yelitis. The patient was admitted to the hospitalist service and she had prior lancing of the area of greatest tenderness and swelling in the left foot; however, had a small amount of drainage at the site. She is continued on IV antibiotics. She has been seen by Dr. Ellsworth who gave consultation and felt she had cellulitis and the possibility of abscess; however, recommended continued observation. Then, th e symptoms appeared to worsen and recommended a consultation for Dr. Gill. The patient's wound cul tures obtained noted to have group A beta strep and Staphylococcus aureus species with another third staph species yet undetermined. The patient continued to have pain and swelling in her left foot. N ow, she is noted to have increased purulent discharge and drainage from the puncture site with contin ued erythema and edema of the left foot, particularly in the plantar lateral aspect adjacent to the f ourth and fifth metatarsal heads. She denies fevers or chills, and is tolerating her antibiotics wel l. PAST MEDICAL HISTORY: Obesity, diabetes mellitus type 2, GERD, anxiety, asthma. PAST SURGICAL HISTORY: Noncontributory. ALLERGIES: ZITHROMAX, DEMEROL, DIFFICULTY BREATHING; PENICILLIN, DIFFICULTY BREATHING; VANCOMYCIN, D IFFICULTY BREATHING. MEDICATIONS: Please note the list presented in the medical record. SOCIAL HISTORY: She denies tobacco, alcohol or drug use. She is and lives with her family. 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 PHYSICAL EXAMINATION: This is a pleasant 37-year-old female, lying supine in hospital room bed. She is awake, alert, oriented and conversant. Focused examination of the left lower extremity demonstra ted skin with puncture at the plantar aspect of the left forefoot between the fourth and fifth metata rsal head region. There is local skin slough with obvious purulent discharge with minimal palpation. She has marked tenderness to palpation at the site. She has surrounding erythema and edema with nava rrounding local fluctuance. There is associated proximal cellulitis up to the level of the ankle and lateral calcaneus region. There is a pen line, which appears to be at the most proximal extent of t he erythema indicating no evidence of worsening of the erythema proximally. Pulses, dorsalis pedis a nd posterior tibial are palpable. Sensation is intact and symmetric in bilateral feet with intact ep icritic sensation. Range of motion is limited in the left foot and ankle due to pain and guarding. Normal range of motion of the right foot and ankle. CT, MRI and laboratory data are reviewed. IMPRESSION: 1. Left foot abscess in evolution. 2. Cellulitis, left foot. 3. Puncture, plantar left foot. 4. Group A beta streptococcus and Staphylococcus aureus infection, left foot. RECOMMENDATIONS: The patient will be made n.p.o. after midnight. She will be scheduled for incision and drainage of abscess with debridement at the puncture site, left foot tomorrow. She has already had her lunch and is actively drinking a Sprite during consultation. She will continue IV antibiotic s while in the hospital and make further determinations on antibiotics after evaluation in the operat erum suite. Thank you for the opportunity to consult in the care of this patient. Job ID: [id number]
[2022-09-24] MEDS: MoRPHine SULFATE 2 MG/ML CARP IV PRN ×3 (01:11→15:31)
[2022-09-24] MEDS ORDERED: Nursing to Pharmacy Communication SCH ×2 (05:15→16:15)
[2022-09-24] MEDS: ACETAMINOPHEN 325 MG TAB PO SCH ×4 (05:25→23:06)
[2022-09-24] MEDS: metroNIDAZOLE 500 MG/100 ML BAG IV SCH ×3 (05:25→21:50)
[2022-09-24] MEDS: ENOXAPARIN INJ 40 MG/0.4 ML SYR SQ SCH ×2 (05:36→18:19)
[2022-09-24] MEDS: ONDANSETRON INJ 2 MG/ML 2 ML VIAL IV PRN ×2 (05:43→18:28)
[2022-09-24] MEDS: INSULIN ASPART PER UNIT SC SCH ×4 (05:51→21:16)
[2022-09-24] MEDS: CLINDAMYCIN/D5W 600 MG/50 ML BAG IV SCH ×3 (08:21→23:05)
[2022-09-24] MEDS: FAMOTIDINE 20 MG in SYRINGE 3 ML IV SCH (08:21)
[2022-09-24] MEDS: PROMETHAZINE HCL 6.25 MG in SODIUM CHLORIDE 0.9% 50 ML IV PRN (08:54)
[2022-09-24] MEDS: ADVANCED PROBIOTIC 1250 MG CAPSULE PO SCH (09:58)
[2022-09-24] MEDS: busPIRone 15 MG TAB PO SCH ×3 (09:58→20:55)
[2022-09-24] MEDS: PANTOprazole 40 MG TAB PO SCH (09:58)
[2022-09-24] MEDS ORDERED: fentaNYL citrate 100 MCG/2 ML VIAL ONE ×2 (10:36→11:56)
[2022-09-24] MEDS ORDERED: MIDAZOLAM HCL 1 MG/ML 2ML VIAL ONE (10:37)
[2022-09-24] MEDS ORDERED: ONDANSETRON INJ 2 MG/ML 2 ML VIAL IV STA (10:55)
[2022-09-24] MEDS ORDERED: ATROPINE SULFATE 0.1 MG/ML 10ML SYR IV PRN (10:57)
[2022-09-24] MEDS ORDERED: ONDANSETRON INJ 2 MG/ML 2 ML VIAL IV PRN (10:57)
[2022-09-24] MEDS ORDERED: fentaNYL citrate 100 MCG/2 ML VIAL IV PRN (10:57)
[2022-09-24] MEDS ORDERED: ePHEDrine sulfate 50 MG/ML AMP IV PRN (10:57)
--- NOTE | 2022-09-24 10:57 | Anesthesiology Consultation ---
Date of Service September 24, 2022 Assessment & Plan Chart Review Chart Review: Acceptable Risk for Surgery and Patient NOT seen in Pre Admission Testing Consults Requested none ASA ASA3 Proposed Anesthesia Anesthesia Type: MAC Risk / Benefits Reviewed With: PT / POA / Parent / Guardian, Accepts Plan and Informed Consent Obtained History Surgery Operation Date: 09/22/22 07:00 Proposed Procedures p Cystoscopy Left Stent Placement - Jim Louis DO Operation Date: 09/24/22 11:00 Proposed Procedures p Left Foot Abscess Incision and Drainage - Fredi Gill DO Height/Weight Height: 5 ft 4 in Weight: 123.5 kg Allergies Allergy/AdvReac Type Severity Reaction Status Date / Time azithromycin [From Zithromax] Allergy Difficulty Verified 09/20/22 13:38 Breathing meperidine [From Demerol] Allergy Difficulty Verified 09/20/22 13:38 Breathing Penicillins Allergy Difficulty Verified 09/20/22 13:38 Breathing vancomycin Allergy Difficulty Verified 09/20/22 13:38 Breathing Medications Home Medications Medication Instructions Recorded Confirmed Last Taken albuterol sulfate 90 mcg/actuation 1 puff inhalation Q4 PRN Wheezing 09/20/22 09/20/22 Unknown aerosol inhaler buspirone 15 mg tablet 15 mg PO TID 09/20/22 09/20/22 Unknown metformin 500 mg tablet,extended 500 mg PO QDD 09/20/22 09/20/22 09/19/22 release 24 hr omeprazole 40 mg capsule,delayed 40 mg PO DAILY 09/20/22 09/20/22 09/19/22 release Active Medications Generic Name Dose Route Start Last Admin Trade Name Rohanq PRN Reason Stop Dose Admin Acetaminophen 650 mg 09/20/22 23:00 09/24/22 05:25 Acetaminophen 325 Mg Tab PO 10/20/22 22:59 650 mg Q6H LACY Administration Buspirone HCl 15 mg 09/20/22 21:00 09/24/22 09:58 Buspirone 15 Mg Tab PO 10/20/22 20:59 Not Given TID LACY Enoxaparin Sodium 40 mg 09/20/22 16:15 09/24/22 05:36 Enoxaparin Inj 40 Mg/0.4 Ml Syr SQ 10/20/22 16:14 Not Given Q12H LACY Ergocalciferol 50,000 units 09/22/22 08:00 09/22/22 09:24 Ergocalciferol 50,000 Units 1250 Mcg Cap PO 10/22/22 07:59 50,000 units Q7D@0800 LACY Administration Cefepime HCl 2,000 mg/ Syringe 20 mls @ 5 mls/min 09/21/22 00:00 09/23/22 23:05 IV 09/28/22 00:00 5 mls/min Q12H LACY Administration Protocol Metronidazole 500 mg in 100 mls @ 100 mls/hr 09/20/22 22:00 09/24/22 06:25 Flagyl IV 09/27/22 21:59 Infused Q8H LACY Infusion Promethazine HCl 6.25 mg/ 50.25 mls @ 201 mls/hr 09/21/22 14:05 09/24/22 09:09 Sodium Chloride IV 10/21/22 14:04 Infused Q6H PRN Infusion Nausea And Vomiting Famotidine 20 mg/ Syringe 5 mls @ 2.5 mls/min 09/22/22 09:00 09/24/22 08:21 IV 10/22/22 08:59 2.5 mls/min QAM LACY Administration Clindamycin Phosphate 600 mg in 50 mls @ 100 mls/hr 09/23/22 00:00 09/24/22 09:01 Cleocin/D5w IV 09/30/22 00:00 Infused Q8H LACY Infusion Ibuprofen 600 mg 09/21/22 02:17 09/23/22 16:14 Ibuprofen 600 Mg Tab PO 10/21/22 02:16 600 mg Q8H PRN Administration Pain Insulin Aspart 0 units 09/24/22 06:00 09/24/22 05:51 Insulin Aspart Per Unit SC 10/24/22 05:59 Not Given Q6 LACY Lactobacillus Acidophilus 2 cap 09/21/22 09:00 09/24/22 09:58 Advanced Probiotic 1250 Mg Capsule PO 10/21/22 08:59 Not Given DAILY LACY Morphine Sulfate 2 mg 09/20/22 14:54 09/24/22 05:43 Morphine Sulfate 2 Mg/Ml Carp IV 10/04/22 14:53 2 mg Q3H PRN Administration Pain (4,5,6+) Ondansetron HCl 4 mg 09/21/22 08:35 09/24/22 05:43 Ondansetron Inj 2 Mg/Ml 2 Ml Vial IV 10/21/22 08:34 4 mg Q4H PRN Administration Nausea Oxycodone HCl 5 mg 09/21/22 08:11 09/23/22 19:36 Oxycodone Hcl Ir 5 Mg Tab (Immediate Release) PO 10/05/22 08:10 5 mg Q4H PRN Administration Pain (4,5,6+) Pantoprazole Sodium 40 mg 09/21/22 09:00 09/24/22 09:58 Pantoprazole 40 Mg Tab PO 10/21/22 08:59 Not Given DAILY LACY NPO Date Last Intake of Fluids: 09/23/22 Time Last Intake of Fluids: 18:00 Date Last Intake of Solids: 09/23/22 Time Last Intake of Solids: 18:00 Past Medical History Medical History (Updated 09/24/22 @ 10:26 by Kwasi Cao) Diabetes mellitus Exercise / Class Metabolic Activity II 4-5 Yardwork/Stairs/Walk up hill Past Surgical History Surgical History (Updated 09/22/22 @ 12:45 by Nay Juarez RN) History of hysterectomy Past Anesthesia History No Hx of Anesthesia Complications and No Family Hx of Anesthesia Complications History of PONV No Hx of PONV and No Hx of Motion Sickness Social History Smoking Status: Never smoker Do You Dip or Chew Tobacco: No Hx Alcohol Use: No Hx Substance Use: No substance use type: does not use Physical Exam Vital Signs Last Vital Signs Temp 36.7 C 09/24/22 10:14 Pulse 85 09/24/22 10:14 Resp 18 09/24/22 10:14 BP 146/86 H 09/24/22 10:14 Pulse Ox 97 09/24/22 10:14 O2 Del Method Room Air 09/24/22 10:14 Constitutional + morbidly obese ENMT Mouth: no dentition abnormality Thyromental Distance: > or= 3.5 Finger Breadths Mallampati Class: II Neck normal visual inspection Respiratory normal respiratory effort Auscultation: lungs clear to auscultation bilaterally Cardiovascular Rate/Rhythm: regular rate and regular rhythm Psychiatric Orientation: alert Testing Laboratory Results 09/23/22 07:16 09/23/22 07:16 PT 10.5 Seconds (9.0-12.0) 09/21/22 08:00 INR 1.0 (0.9-1.1) 09/21/22 08:00 Hemoglobin A1c 5.7 % (4.5-5.6) H 09/21/22 08:00 Urine Color Yellow 09/20/22 13:09 Urine Appearance Cloudy (Clear) A 09/20/22 13:09 Urine pH 5.5 (4.5-7.5) 09/20/22 13:09 Ur Specific [place] 1.036 (1.000-1.030) H 09/20/22 13:09 Urine Protein 2+ (Negative) H 09/20/22 13:09 Urine Glucose (UA) Negative (Negative) 09/20/22 13:09 Urine Ketones Trace (Negative) H 09/20/22 13:09 Urine Nitrite Negative (Negative) 09/20/22 13:09 Ur Leukocyte Esterase 2+ (Negative) H 09/20/22 13:09 Urine WBC (Auto) >30 /hpf (0-5) H 09/20/22 13:09 Urine RBC (Auto) >30 /hpf (0-4) H 09/20/22 13:09 U Hyaline Cast (Auto) 10-30 /lpf (0-5) H 09/20/22 13:09 U Epithel Cells (Auto) 20-30 /lpf (0-5) H 09/20/22 13:09 Urine Bacteria (Auto) 1+ (Negative) H 09/20/22 13:09 09/20/22 13:49 Gram Stain - Final Foot,Left Aerobic and Anaerobic Culture - Preliminary Group A Beta Strep Staphylococcus aureus Staphylococcus aureus#2 09/20/22 12:05 Aerobic Blood Culture - Preliminary Blood No growth in Aerobic bottle after 48 hours. Anaerobic Blood Culture - Preliminary No growth in Anaerobic bottle after 48 hours. 09/20/22 11:46 Aerobic Blood Culture - Preliminary Blood No growth in Aerobic bottle after 48 hours. Anaerobic Blood Culture - Preliminary No growth in Anaerobic bottle after 48 hours. 09/20/22 13:09 Urine Culture - Final Urine,Clean Catch Three types of organisms present, all low counts probable skin francisca. No further identifications or sensitivities to follow. 09/24/22 09/24/22 10:17 05:48 POC Glucose 102 H 96
--- NOTE | 2022-09-24 11:09 | History & Physical Bridge Note ---
Date of Service September 24, 2022 History & Physical Bridge Note I have examined the patient, reviewed the History & Physical and in the interval since the performance of the History & Physical I have noted the following changes of clinical significance: no changes noted
[2022-09-24] MEDS: CEFEPIME 2,000 MG in SYRINGE 0 ML IV SCH (11:30)
[2022-09-24] MEDS ORDERED: BUPIVACAINE/EPINEPHRINE 0.5% MPF 1:200,000 30 ML VIAL ONE (11:40)
[2022-09-24] MEDS ORDERED: BUPIVACAINE 0.5 % 5 MG/1 ML MPF 30ML VIAL ONE (11:41)
[2022-09-24] MEDS ORDERED: ONDANSETRON INJ 2 MG/ML 2 ML VIAL ONE (11:49)
[2022-09-24] MEDS ORDERED: PROPOFOL IV EMULSION 10 MG/ML 20 ML VIAL IV ONE (11:49)
[2022-09-24] MEDS ORDERED: LIDOCAINE 2% MPF LOCAL 5 ML VIAL INFIL ONE (11:49)
--- NOTE | 2022-09-24 12:52 | Post Operative Brief Note ---
Immediate Post Op Note v1 Date of Surgery September 24, 2022 Pre & Post Diagnosis Operation Date: 09/24/22 11:00 Pre-Op Diagnosis: Left foot abscess between fourth and fifth metatarsal heads, 1 cm puncture plantar left foot, septic arthritis left 5th metatarsal joint, tenosynovitis left 5th toe extensor Post-Op Diagnosis: Left foot abscess between fourth and fifth metatarsal heads, 1 cm puncture plantar left foot, septic arthritis left 5th metatarsal joint, tenosynovitis left 5th toe extensor I identified the patient and participated in the time-out.: Yes Procedure Operation Date: 09/24/22 11:00 Actual Procedures p Left Foot Abscess Incision and Drainage, debridement of 1 cm puncture wound to the level of subcutaneous fat and fascia, arthrotomy of left fifth metatarsophalangeal joint with irrigation, tenosynovectomy of left fifth extensor tendon(Left) - Fredi Gill DO Surgeon Fredi Gill DO Candle Cutter None Estimated Blood Loss 2 Findings Consistent with Post-Op Diagnosis Drains Other (1/2 inch iodoform gauze drains x2) Anesthesia Type General Regional Complications none Disposition Accompanied Patient To Recovery: No
--- NOTE | 2022-09-24 13:59 | Anesthesiology Progress Note ---
Date of Service September 24, 2022 Anesthesia Post Procedure Vital Signs Vital Signs: Temp Pulse Pulse Pulse Resp BP BP 09/24/22 13:37 36.6 C 89 16 142/90 H 09/24/22 13:20 36.6 C 81 20 136/83 09/24/22 13:10 36.4 C L 80 21 142/102 H 09/24/22 13:00 36.4 C L 76 15 142/103 H 09/24/22 12:50 36.4 C L 87 22 147/98 H 09/24/22 12:42 36.4 C L 83 20 140/94 09/24/22 10:14 36.7 C 85 18 146/86 H 09/24/22 08:30 09/24/22 07:27 36.9 C 82 18 133/90 09/23/22 19:45 09/23/22 21:39 36.4 C L 73 18 114/71 09/23/22 15:00 36.5 C 70 16 121/82 Pulse Ox O2 Del Method O2 Flow Rate 09/24/22 13:37 97 Room Air 09/24/22 13:20 99 Nasal Cannula 2 09/24/22 13:10 98 Nasal Cannula 2 09/24/22 13:00 100 Nasal Cannula 5 09/24/22 12:50 100 Oxymask 8 09/24/22 12:42 93 Oxymask 8 09/24/22 10:14 97 Room Air 09/24/22 08:30 Room Air 09/24/22 07:27 94 Room Air 09/23/22 19:45 Room Air 09/23/22 21:39 95 Room Air 09/23/22 15:00 97 Room Air Pain Intensity Left Foot: Pain Intensity: 8 Left Flank: Pain Intensity: 0 Transfer of Care Handoff Completed per policy Notes Mental Status: alert / awake / arousable Patient Amnestic to Procedure: Yes Nausea / Vomiting: adequately controlled Pain: adequately controlled Airway Patency, RR, SpO2: stable & adequate BP & HR: stable & adequate Hydration State: stable & adequate Anesthetic Complications: no major complications apparent
--- NOTE | 2022-09-24 14:41 | Operative Report (OR) ---
DATE OF PROCEDURE: 09/24/2022. PREOPERATIVE DIAGNOSES: 1. Left foot abscess between the fourth and fifth metatarsal heads. 2. 1 cm puncture plantar left foot. 3. Septic arthritis fifth metatarsophalangeal joint. 4. Tenosynovitis of the left fifth toe extensor tendon. POSTOPERATIVE DIAGNOSES: 1. Left foot abscess between the fourth and fifth metatarsal heads. 2. 1 cm puncture plantar left foot. 3. Septic arthritis fifth metatarsophalangeal joint. 4. Tenosynovitis of the left fifth toe extensor tendon. PROCEDURE: 1. Left foot incision and drainage of abscess between the fourth and fifth metatarsal heads. 2. Debridement of 1 cm puncture wounds to the level of subcutaneous fat and fascia, left foot. 3. Arthrotomy of the left fifth metatarsophalangeal joint with irrigation. 4. Tenosynovectomy of the left fifth extensor tendon. SURGEON: Fredi Gill D.O. EMPLOYMENT SECURITY OFFICER: None. ANESTHESIA: General with regional. SPECIMENS: None. However, previously obtained through the open purulent discharge in the patient's room. DRAINS: One-half inch iodoform gauze x2 separate sites. COMPLICATIONS: None. BLOOD LOSS: 2 mL. PERTINENT HISTORY: This is a 37-year-old female who apparently stepped on a nail from a broken dress er on 09/17/2022. She had worsening pain, swelling and redness. She eventually presented to the [facility] ER where she was evaluated, placed on IV antibiotics, admitted to the hospi talist service. The medical service then consulted Dr. Ellsworth who had performed an initial consult ation and advised for continued conservative management as there was no clear evidence of drainable a bscess; however, the patient's condition then worsened. She had obvious rupture of her healing punct ure on the plantar aspect of the left foot between the fourth and fifth metatarsal head and began ruddy ining copious amounts of purulent discharge. They then recommended a consultation with Dr. Gill. I then evaluated the patient and noted her declining condition despite IV antibiotics and then schedu led her for surgical intervention as indicated. All potential risks, benefits, complications, alternatives, rehab potential for incomplete relief of symptoms, need for further surgery, DVT, PE, , persistent pain, swelling, scarring, weakness, ne urovascular injury, wound complications, need for further irrigation and debridement was discussed wi th the patient. The patient decided to proceed with the procedure as indicated. DESCRIPTION OF PROCEDURE: The patient was taken to the operative suite and placed supine on the operating table. After review of consent and identification of proper site, the patient was anesthetized, LMA was placed. There wa s no pneumatic tourniquet used on the patient due to the lower extremity infection. The left lower e xtremity was then sterilely prepped and draped in usual fashion, elevated and a 4-inch Esmarch tourni quet was applied over sterile surgical towel at the level of the ankle without exsanguination due to the nature of the infection. After surgical timeout was performed, a 15 blade scalpel was used to make an incision on the plantar aspect of the left foot at the site of the puncture to gain visualization. This incision was then de epened through the skin and subcutaneous tissue to the end of the puncture tract, noted to be approxi mately 1 cm in depth to the level of subcutaneous fat and fascia. Purulent discharge then extruded du e to the pressure and it was decided to be no need for any further culture as a previous data was obt ained from the culturing same puncture tract approximately 3 days prior. The site was then opened wi th a small skin rake and a rongeur was then used to carefully debride the sinus tract and the abscess with a rongeur including skin, subcutaneous fat and fascia. This noted to track dorsally and concern with tenosynovitis was warranted as after 15 blade scalpel, incision was made in the dorsum of the foot between the fourth and fifth metatarsal heads with carefu l dissection was performed with Metzenbaum scissors through the subcutaneous tissue to the level of t he abscess. There was noted to be involvement of the fifth extensor tendon with a glossy hypertrophi c infected tenosynovitis. The extensor tendon for the fifth toe was then carefully debrided with a rongeur forceps and 15 blade scalpel. The tendon integrity was intact; however, there was appeared to be involvement of the fift h metatarsophalangeal joint capsule. Arthrotomy was performed of the fifth metatarsophalangeal joint capsule with a #15-blade scalpel and indeed purulent-appearing fluid was contained within the fifth metatarsophalangeal joint. After all necrotic-appearing tissue and subcutaneous fat was then sharply excised with 15 blade scalp el and forceps, pulse lavage with 6 liters of saline was performed to lavage the dorsal and plantar s urgical incisions until clear. Top gloves and top sheet were changed and then one-half inch iodoform gauze was placed through the pl migue incision and then a second drain one-half inch iodoform gauze was placed through small drain tr act made with a hemostat and a small puncture with a 15 blade scalpel to be taken away from the site of the surgical incision proximally to allow continued drainage. A 3-0 nylon suture was carefully used to close the tissue with loose approximation both dorsal and pl migeu. This was then followed by an application of a sterile compressive dressing after performing a regional anesthetic block with 0.5% Marcaine using an ankle block technique. A sterile compressive dressing, Xeroform gauze, sterile 4 x 4s, ABD pads, cast padding, and an Jones wrap was applied. The t ourniquet was released. Normal hyperemic response returned to the toes. The patient was awakened an d taken to recovery in stable condition. Job ID: [id number]
[2022-09-24] MEDS: oxyCODONE HCL IR 5 MG TAB (IMMEDIATE RELEASE) PO PRN ×2 (14:42→19:26)
[2022-09-24] MEDS: HYDROmorphone INJ 0.5 MG/0.5 ML SYR IV PRN (18:32)
[2022-09-24] MEDS: IBUPROFEN 600 MG TAB PO PRN (20:55)
--- NOTE | 2022-09-24 21:56 | Hospitalist Progress Note ---
Date of Service September 24, 2022 Assessment & Plan (1) Cellulitis of left foot: Plan: 2nd to puncture wound from a nail from a piece of furniture. s/p I/D done of tiny abscess on foot in the ER - culture grew GBS and MSSA. unfortunately the foot worsened despite appropriate IV abx therapy. now s/p extensive foot surgery today with the following findings by Dr Gill - 1. Left foot abscess between the fourth and fifth metatarsal heads. 2. 1 cm puncture plantar left foot. 3. Septic arthritis fifth metatarsophalangeal joint. 4. Tenosynovitis of the left fifth toe extensor tendon. Given that there was tendon/joint involvement despite IV cefepime + IV clindamycin will ask ID to consult for their opinion on length of IV abx, when PO would be acceptable, overall course, etc. Of note - no culture sent intra-operatively today. (2) Tenosynovitis of left foot: Plan: L 5th toe extensor tendon - see #1 above (3) Septic arthritis of left foot: Plan: 5th MTP joint - see #1 above (4) Bilateral kidney stones: Plan: POD #2 - s/p left sided ureteral stent placement. b/l stones with larger stone on left. had been having flank pain on left hence the stent placement. typically follows with urology in [place]. appreciate urology assistance. no issues since stent placement. (5) Diabetes mellitus: Plan: excellent control novolog SSI hba1c 5.7% (6) GERD (gastroesophageal reflux disease): Plan: Continue PPI Cont H2 adam controlled (7) Asthma: Plan: Stable on RA Continue PRN albuterol (8) Urinary tract infection: Plan: urine cx negative but will presume there is UTI abx for #1 will suffice (9) Nausea & vomiting: Plan: resolved as of 09/21 (10) Anxiety: Plan: controlled w/ buspar TSH wnl (11) Hypomagnesemia: Plan: replaced resolved (12) Vitamin D deficiency: Plan: 25-OH vit D level = 10.8 cont ergocalciferol 50,000 units qweekly (13) Crohn disease: Plan: reported history of such follows with Dr Louis in [place], was to be on q6wks Entyvio but hasn't gotten in about a year due to her job change and not getting the time off no flare in quite some time regardless needs to re-establish care with Neel Castellanos (14) Morbid obesity with BMI of 45.0-49.9, adult: Plan: BMI 46.7 Plan DVT proph - lovenox BID due to morbid obesity although she c/o L calf pain she has been receiving the lovenox BID regularly while here although did not have a dose today pre-op and a dose a few days ago has family history of DVT/PE on mother's side - low threshold for doppler of LLE appreciate Dr Gill's consultation and surgical assistance pain control - change IV morphine to IV dilaudid prn Admission and Anticipated Discharge Date Admission Date: September 21, 2022 Subjective saw patient post-op from her L foot surgery considerable pain in the foot - only partially relieved by morphine also having left calf pain - feels "tight" and numb no other new complaints Review of Systems Review of Systems: gen - no fevers/chills cv - no cp pulm - no dyspnea GI - no abd pain Physical Exam Physical Exam: gen - obese, uncomfortable due to L foot pain neck - no JVD mouth - MMM heart - RRR, s1 s2, no murmur lungs - CTA b/l abd - soft NT ND BS+ vascular - pulses 2+ b/l feet skin - left foot dressings intact from her surgery - not altered/removed; toes with normal cap refill on left , however ext - left calf is mildly enlarged vs right calf but nontender to palpation, no palpable cords, no redness of L calf Results & Data Results & Data ([facility]) Vital Signs (Past 12 Hours) Vital Signs Temp Pulse Pulse Resp BP Pulse Ox O2 Del Method 09/24/22 19:19 36.6 C 82 20 154/89 H 98 Room Air 09/24/22 15:35 36.5 C 80 16 141/88 H 99 Room Air 09/24/22 14:31 36.4 C L 74 16 138/89 97 Room Air 09/24/22 14:01 36.4 C L 87 16 136/87 99 Room Air 09/24/22 13:37 36.6 C 89 16 142/90 H 97 Room Air 09/24/22 13:20 36.6 C 81 20 136/83 99 Nasal Cannula 09/24/22 13:10 36.4 C L 80 21 142/102 H 98 Nasal Cannula 09/24/22 13:00 36.4 C L 76 15 142/103 H 100 Nasal Cannula 09/24/22 12:50 36.4 C L 87 22 147/98 H 100 Oxymask 09/24/22 12:42 36.4 C L 83 20 140/94 93 Oxymask 09/24/22 10:14 36.7 C 85 18 146/86 H 97 Room Air O2 Flow Rate 09/24/22 19:19 09/24/22 15:35 09/24/22 14:31 09/24/22 14:01 09/24/22 13:37 09/24/22 13:20 2 09/24/22 13:10 2 09/24/22 13:00 5 09/24/22 12:50 8 09/24/22 12:42 8 09/24/22 10:14 PG Care Time/CCT Total # of Minutes Spent Total Time Spent with Patient: Total time spent is greater than 50% in coordination of care (as documented) at patient's floor/unit and/or counseling patient: Coding Level of Care Code 18609 SUB INP/OBS CARE MIN Diagnoses Cellulitis of left foot L03.116 Tenosynovitis of left foot M65.9 Septic arthritis of left foot M00.9 Bilateral kidney stones N20.0 Diabetes mellitus E11.9 GERD (gastroesophageal reflux disease) K21.9 Asthma J45.909 Urinary tract infection N39.0 Nausea & vomiting R11.2 Anxiety F41.9 Hypomagnesemia E83.42 Vitamin D deficiency E55.9 Crohn disease K50.90 Morbid obesity with BMI of 45.0-49.9, adult E66.01; Z68.42
[2022-09-25] MEDS: CEFEPIME 2,000 MG in SYRINGE 0 ML IV SCH ×2 (00:11→11:47)
[2022-09-25] MEDS: oxyCODONE HCL IR 5 MG TAB (IMMEDIATE RELEASE) PO PRN ×4 (00:16→19:21)
[2022-09-25] MEDS: HYDROmorphone INJ 0.5 MG/0.5 ML SYR IV PRN ×3 (01:12→20:35)
[2022-09-25] MEDS: metroNIDAZOLE 500 MG/100 ML BAG IV SCH ×2 (05:57→19:22)
[2022-09-25] MEDS: ACETAMINOPHEN 325 MG TAB PO SCH ×4 (05:57→22:43)
[2022-09-25] MEDS: ENOXAPARIN INJ 40 MG/0.4 ML SYR SQ SCH ×2 (06:01→17:29)
--- NOTE | 2022-09-25 07:44 | Orthopedic Progress Note ---
Date of Service September 25, 2022 Assessment & Plan (1) Abscess of left foot: Plan: POD #1; WBAT partial left heel with post-op shoe for transfers only. Continue IV anbx DVT prophylaxis per medical [facility] rec Pain control. Ice/elev. Will have packing pulled and dressing changed tomorrow. (2) Puncture wound: (3) Cellulitis of left foot: (4) Tenosynovitis of left foot: Admission and Anticipated Discharge Date Admission Date: September 21, 2022 Subjective Patient seen while awake and alert with mild to moderate intermittent left foot pain. No fevers/chills. Physical Exam Physical Exam: A/O X3. Dressing intact left foot. No strikethrough. cap refill brisk left foot. Neurosensory exam intact. Tenderness left forefoot at incision sites. Calves soft. Results & Data ([facility]) Vital Signs (Past 12 Hours) Vital Signs Temp Pulse Resp BP Pulse Ox O2 Del Method 09/25/22 03:27 36.4 C L 86 18 137/89 96 Room Air 09/24/22 22:59 36.7 C 81 18 138/85 94 Room Air
[2022-09-25] MEDS: ADVANCED PROBIOTIC 1250 MG CAPSULE PO SCH (08:39)
[2022-09-25] MEDS: busPIRone 15 MG TAB PO SCH ×3 (08:39→20:36)
[2022-09-25] MEDS: PANTOprazole 40 MG TAB PO SCH (08:39)
[2022-09-25] MEDS: CLINDAMYCIN/D5W 600 MG/50 ML BAG IV SCH ×2 (08:42→16:37)
[2022-09-25] MEDS: FAMOTIDINE 20 MG in SYRINGE 3 ML IV SCH (08:42)
[2022-09-25 09:40] LABS: BUN Creatinine Ratio 13.7 (10-20); Creatinine Clr Calc Pharmacy 103.2 ml/min; Est GFR (African American) 87.4 ml/min; Est GFR (Non-African American) 75.4 ml/min; Potassium 3.8 mmol/L (3.5-5.1)
[2022-09-25] MEDS: INSULIN ASPART PER UNIT SC SCH ×4 (09:50→20:28)
[2022-09-25 09:54] LABS: Hematocrit (blood only) 38.2 % (37.0-47.0); Hemoglobin 12.7 g/dl (12.0-16.0); Mean Corpuscular Hemoglobin 29.7 pg (25.0-34.0); Mean Corpuscular Hgb Conc 33.2 g/dL (32.0-36.0); Mean Corpuscular Volume 89.3 fL (80.0-100.0); Mean Platelet Volume 9.8 fL (9.4-12.4); Platelet Count 339 K/uL (130-400); RDW Coefficient of Variation 12.4 % (11.5-14.5); RDW Standard Deviation 39.8 fL (36.4-46.3); Red Blood Count 4.28 M/uL (4.20-5.40); White Blood Count 12.17 K/ul (4.8-10.8)
--- NOTE | 2022-09-25 12:10 | Infectious Disease Consult ---
Date of Consultation September 25, 2022 Assessment & Plan (1) Septic arthritis of left foot: #L foot abscess with septic arthritis s/p I+D, tensynovectomy on 09/24 #Nephrolithiasis with cystoscopy stent placement #Penicillin Allergy, Vancomycin Allergy 37 year old female with a PMH significant for obesity, DM II, GERD, and anxiety who was admitted to [facility] on 09/20 with L foot wound after stepping on screw. ID consulted for antibiotic management. Per EMR, on 09/17 she stepped on a screw in their bathroom that resulted in minimal bleeding. Wound was cleaned with hydrogen peroxide and topical antibiotic ointment but progressed to more swelling and pain. Referred to ED from Urgent care clinic. Tetanus up to date per ER note. (past 5 years) On admission, vitals stable. Wbc initially 13K, cr 1.04. CT foot No radiopaque foreign body. No fracture, No osteomyelitis or gas. Puncture wound of the plantar aspect of the left forefoot. Associated skin thickening and inflammation consistent with cellulitis which extends toward the left fourth and fifth metatarsophalangeal joints. A few possible tiny abscesses adjacent to the left fifth metatarsal head Started on Cefepime Daptomycin Flagyl. Of note, UA 2+ leukocyte esterase, >30 WBC, and 1+ bacteria, UCx grew low counts of three types of organisms probable skin francisca. 09/20 superficial wound culture grew BHS, Group A and MSSA. Urology consulted for renal stones, ultrasound on 09/21 confirmed b/l nephrolithiasis with 13mm stone in Left kidney Orthopaedics taken to OR on 09/24 for Left Foot Abscess Incision and Drainage, debridement of 1 cm puncture wound to the level of subcutaneous fat and fascia, arthrotomy of left fifth metatarsophalangeal joint with irrigation, tenosynovectomy of left fifth extensor tendon. On 09/22 underwent cystoscopy and left ureteral stent placement Discussion: Patient with septic arthritis and tenosynovitis. Superficial cx grew strep and MSSA. She is on broad antibiotics because of allergies. Anticipate she will need 3 weeks total of antibiotics from debridement. We can dc Daptomycin. I will d/w patient and team Cefazolin challenge. IF this is the case that we can transition to oral cephalosporin. If no challenge we can change to po Doxycycline to complete therapy. (2) Abscess of left foot: (3) Tenosynovitis of left foot: (4) Cellulitis of left foot: (5) Puncture wound: (6) Morbid obesity with BMI of 45.0-49.9, adult: (7) Leukocytosis: Plan -Discontinue Daptomycin -Can c/w Cefepime and Flagyl -If patient is agreeable to cefazolin challenge we can have a more focused treatment Needs 3 weeks minimum for treatment which we can transition to po -Will d/w Dr. Cao Thank you for this consult, ID will follow Karen Lewis MD Infectious Diseases [facility] Consultation Information This patient recommendation is based on a telemedicine consult request which was completed asynchronously through chart review and information provided by the primary physician. The patient was not seen or examined today. The evaluation is consultative in nature and all patient care and treatment decisions can either be accepted or rejected by the patient's primary hospital-based treating physician using their own independent medical judgment for their patient. G[employer] contact information: Please call [facility] Call Center . (Phone Number For Physician Use Only) Time Spent Reviewing Chart: 31+ minutes History of Present Illness Reason for Consultation: Tenosynovitis of L foot Requesting Physician: Kwasi Cao Attending Physician: Kwasi Cao History of Present Illness 37 year old female with a PMH significant for obesity, DM II, GERD, and anxiety who was admitted to [facility] on 09/20 with L foot wound after stepping on screw. ID consulted for antibiotic management. Per EMR, on 09/17 she stepped on a screw in their bathroom that resulted in minimal bleeding. Wound was cleaned with hydrogen peroxide and topical antibiotic ointment but progressed to more swelling and pain. Referred to ED from Urgent care clinic. Tetanus up to date per ER note. (past 5 years) On admission, vitals stable. Wbc initially 13K, cr 1.04. CT foot No radiopaque foreign body. No fracture, No osteomyelitis or gas. Puncture wound of the plantar aspect of the left forefoot. Associated skin thickening and inflammation consistent with cellulitis which extends toward the left fourth and fifth metatarsophalangeal joints. A few possible tiny abscesses adjacent to the left fifth metatarsal head Started on Cefepime Daptomycin Flagyl. Of note, UA 2+ leukocyte esterase, >30 WBC, and 1+ bacteria, UCx grew low counts of three types of organisms probable skin francisca. 09/20 superficial wound culture grew BHS, Group A and MSSA. Urology consulted for renal stones, ultrasound on 09/21 confirmed b/l nephrolithiasis with 13mm stone in Left kidney Orthopaedics taken to OR on 09/24 for Left Foot Abscess Incision and Drainage, debridement of 1 cm puncture wound to the level of subcutaneous fat and fascia, arthrotomy of left fifth metatarsophalangeal joint with irrigation, tenosynovectomy of left fifth extensor tendon. On 09/22 underwent cystoscopy and left ureteral stent placement ID consulted for duration of antibiotics. Allergies Allergy/AdvReac Type Severity Reaction Status Date / Time azithromycin [From Zithromax] Allergy Difficulty Verified 09/20/22 13:38 Breathing meperidine [From Demerol] Allergy Difficulty Verified 09/20/22 13:38 Breathing Penicillins Allergy Difficulty Verified 09/20/22 13:38 Breathing vancomycin Allergy Difficulty Verified 09/20/22 13:38 Breathing Home Medications Medication Instructions Recorded Confirmed Type albuterol sulfate 90 mcg/actuation 1 puff inhalation Q4 PRN Wheezing 09/20/22 09/20/22 History aerosol inhaler buspirone 15 mg tablet 15 mg PO TID 09/20/22 09/20/22 History metformin 500 mg tablet,extended 500 mg PO QDD 09/20/22 09/20/22 History release 24 hr omeprazole 40 mg capsule,delayed 40 mg PO DAILY 09/20/22 09/20/22 History release Patient History Medical History (Updated 09/25/22 @ 10:39 by Kwasi Cao) Diabetes mellitus Surgical History (Updated 09/22/22 @ 12:45 by Nay Juarez RN) History of hysterectomy Social History Smoking Status: Never smoker Second Hand Exposure: No; Hx Alcohol Use: No Hx Substance Use: No Preferred Language: Slovak Communication Ability: Effective Pointer Helper Required: No Beliefs That Will Affect Care: None Current Living Situation: Spouse and Family Feels Safe at Home: Yes Assistive Devices: None Results & Data ([facility]) Vital Signs (Past 12 Hours) Vital Signs Temp Pulse Resp BP Pulse Ox O2 Del Method 09/25/22 07:30 Room Air 09/25/22 07:43 36.6 C 68 18 126/80 95 Room Air 09/25/22 03:27 36.4 C L 86 18 137/89 96 Room Air (7) Leukocytosis Leukocytosis type: unspecified Qualified Code(s): D72.829 - Elevated white blood cell count, unspecified
[2022-09-25] MEDS: IBUPROFEN 600 MG TAB PO PRN (14:34)
[2022-09-25] MEDS: ONDANSETRON INJ 2 MG/ML 2 ML VIAL IV PRN ×2 (16:37→23:38)
--- NOTE | 2022-09-25 21:13 | Hospitalist Progress Note ---
Date of Service September 25, 2022 Assessment & Plan (1) Cellulitis of left foot: Plan: 2nd to puncture wound from a nail from a piece of furniture. s/p I/D done of tiny abscess on foot in the ER - culture grew GBS and MSSA. unfortunately the foot worsened despite appropriate IV abx therapy. POD #1 s/p the following by Dr Gill - 1. Left foot abscess between the fourth and fifth metatarsal heads. 2. 1 cm puncture plantar left foot. 3. Septic arthritis fifth metatarsophalangeal joint. 4. Tenosynovitis of the left fifth toe extensor tendon. Given that there was tendon/joint involvement despite IV cefepime + IV clindamycin asked for ID consultation & recs. At this time they advise continuing cefepime/flagyl but perhaps performing ancef challenge with ultimate goal with keflex at d/c x 3 weeks. Of note - no culture sent intra-operatively for pain - add toradol 30mg IV q6h prn in addition to IV dilaudid prn (2) Tenosynovitis of left foot: Plan: L 5th toe extensor tendon - see #1 above (3) Septic arthritis of left foot: Plan: 5th MTP joint - see #1 above (4) Bilateral kidney stones: Plan: POD #3 - s/p left sided ureteral stent placement. b/l stones with larger stone on left. had been having flank pain on left hence the stent placement. typically follows with urology in [place]. appreciate urology assistance. no issues since stent placement. (5) Diabetes mellitus: Plan: excellent control novolog SSI hba1c 5.7% (6) GERD (gastroesophageal reflux disease): Plan: Continue PPI stop pepcid controlled (7) Asthma: Plan: Stable on RA Continue PRN albuterol (8) Urinary tract infection: Plan: urine cx negative but will presume there is UTI abx for #1 will cont to suffice (9) Nausea & vomiting: Plan: resolved as of 09/21 (10) Anxiety: Plan: controlled w/ buspar TSH wnl (11) Hypomagnesemia: Plan: replaced resolved (12) Vitamin D deficiency: Plan: 25-OH vit D level = 10.8 cont ergocalciferol 50,000 units qweekly (13) Crohn disease: Plan: reported history of such follows with Dr Louis in [place], was to be on q6wks Entyvio but hasn't gotten in about a year due to her job change and not getting the time off no flare in quite some time regardless needs to re-establish care with Neel Castellanos (14) Morbid obesity with BMI of 45.0-49.9, adult: Plan: BMI 46.7 Plan DVT proph - lovenox BID due to morbid obesity appreciate Dr Gill's consultation and surgical assistance progressing Admission and Anticipated Discharge Date Admission Date: September 21, 2022 Subjective only complaint is left foot pain otherwise feels fine no diarrhea eating well no further calf pain denies dyspnea or FRANK Review of Systems Review of Systems: gen - no fevers or chills cv - no cp GI - no diarrhea from abx; no abd pain or flank pain pulm - no dyspnea or FRANK or cough Physical Exam Physical Exam: gen - obese, uncomfortable due to L foot pain ; asking for pain meds neck - no JVD mouth - MMM heart - RRR, s1 s2, no murmur lungs - CTA b/l abd - soft NT ND BS+ vascular - pulses 2+ b/l feet skin - left foot dressings intact from her surgery - not altered/removed; toes with normal cap refill on left - <2sec ext - left calf today normal appearance, no tenderness, no warmth Results & Data Results & Data ([facility]) Vital Signs (Past 12 Hours) Vital Signs Temp Pulse Resp BP Pulse Ox O2 Del Method 09/25/22 14:45 36.3 C L 71 18 129/81 98 Room Air 09/25/22 11:10 36.7 C 69 18 126/85 97 Room Air Laboratory Results Laboratory Results - last 24 hr 09/25/22 09/25/22 09/25/22 07:59 09:01 09:01 WBC 12.17 H RBC 4.28 Hgb 12.7 Hct 38.2 MCV 89.3 MCH 29.7 MCHC 33.2 RDW Std Deviation 39.8 RDW Coeff of Louann 12.4 Plt Count 339 MPV 9.8 Sodium 135 L Potassium 3.8 Chloride 101 Carbon Dioxide 28 Anion Gap 6 BUN 13 Creatinine 0.95 Est Cr Clr Drug Dosing 103.2 Est GFR ( Amer) 87.4 Est GFR (Non-Af Amer) 75.4 BUN/Creatinine Ratio 13.7 Glucose 111 H POC Glucose 97 Calcium 9.0 09/25/22 09/25/22 09/25/22 12:12 17:19 20:22 WBC RBC Hgb Hct MCV MCH MCHC RDW Std Deviation RDW Coeff of Louann Plt Count MPV Sodium Potassium Chloride Carbon Dioxide Anion Gap BUN Creatinine Est Cr Clr Drug Dosing Est GFR ( Amer) Est GFR (Non-Af Amer) BUN/Creatinine Ratio Glucose POC Glucose 116 H 90 117 H Calcium PG Care Time/CCT Total # of Minutes Spent Total Time Spent with Patient: Total time spent is greater than 50% in coordination of care (as documented) at patient's floor/unit and/or counseling patient: Coding Level of Care Code 81358 SUB INP/OBS CARE 08/20MIN Diagnoses Cellulitis of left foot L03.116 Tenosynovitis of left foot M65.9 Septic arthritis of left foot M00.9 Bilateral kidney stones N20.0 Diabetes mellitus E11.9 GERD (gastroesophageal reflux disease) K21.9 Asthma J45.909 Urinary tract infection N39.0 Nausea & vomiting R11.2 Anxiety F41.9 Hypomagnesemia E83.42 Vitamin D deficiency E55.9 Crohn disease K50.90 Morbid obesity with BMI of 45.0-49.9, adult E66.01; Z68.42
[2022-09-26] MEDS: CEFEPIME 2,000 MG in SYRINGE 0 ML IV SCH ×2 (00:47→11:22)
[2022-09-26] MEDS: oxyCODONE HCL IR 5 MG TAB (IMMEDIATE RELEASE) PO PRN ×2 (01:20→12:38)
[2022-09-26] MEDS: HYDROmorphone INJ 0.5 MG/0.5 ML SYR IV PRN ×3 (02:28→23:10)
[2022-09-26] MEDS: metroNIDAZOLE 500 MG/100 ML BAG IV SCH ×2 (02:29→11:23)
[2022-09-26] MEDS: KETOROLAC 30 MG/ML VIAL IV PRN ×2 (04:46→22:09)
[2022-09-26] MEDS: ENOXAPARIN INJ 40 MG/0.4 ML SYR SQ SCH ×2 (04:46→17:15)
[2022-09-26] MEDS: ACETAMINOPHEN 325 MG TAB PO SCH ×4 (04:46→22:13)
[2022-09-26] MEDS: INSULIN ASPART PER UNIT SC SCH ×4 (08:34→21:16)
[2022-09-26] MEDS: PANTOprazole 40 MG TAB PO SCH (08:35)
[2022-09-26] MEDS: busPIRone 15 MG TAB PO SCH ×3 (08:35→20:37)
[2022-09-26] MEDS: ADVANCED PROBIOTIC 1250 MG CAPSULE PO SCH (08:35)
[2022-09-26] MEDS: ONDANSETRON INJ 2 MG/ML 2 ML VIAL IV PRN (11:22)
--- NOTE | 2022-09-26 14:09 | Orthopedic Progress Note ---
Date of Service September 26, 2022 Assessment & Plan (1) Abscess of left foot: Plan: POD #2; WBAT partial left heel with walker and post-op shoe for transfers and trips to the bathroom. Continue IV anbx DVT prophylaxis per [facility] rec Pain control. Ice/elev. Likely stable for D/C tomorrow per ortho if OK with medical team. Cont outpatient Anbx as per ID recs. F/U Ortho in 2-3 weeks (2) Puncture wound: (3) Cellulitis of left foot: (4) Tenosynovitis of left foot: Admission and Anticipated Discharge Date Admission Date: September 21, 2022 Subjective Mild foot discomfort on occasion. no diarrhea eating well no calf pain No CP/SOB Eager to get home. Physical Exam Physical Exam: A/O X3. Dressing intact left foot. No strikethrough. Sterile dressing change performed and packing pulled. Cap refill brisk left foot. Neurosensory exam in tact. Tenderness left forefoot at incision sites. Calves soft. Results & Data ([facility]) Vital Signs (Past 12 Hours) Vital Signs Temp Pulse Resp BP Pulse Ox O2 Del Method 09/26/22 11:29 36.5 C 85 136/86 96 Room Air 09/26/22 08:33 36.8 C 78 17 146/94 H 95 Room Air Laboratory Results Reviewed.
--- NOTE | 2022-09-26 15:22 | Infectious Disease Progress Nt ---
Date of Service September 26, 2022 Assessment & Plan (1) Septic arthritis of left foot: Plan: #L foot abscess with septic arthritis s/p I+D, tensynovectomy on 09/24 #Nephrolithiasis with cystoscopy stent placement #Penicillin Allergy, Vancomycin Allergy 37 year old female with a PMH significant for obesity, DM II, GERD, and anxiety who was admitted to [facility] on 09/20 with L foot wound after stepping on screw. ID consulted for antibiotic management. Per EMR, on 09/17 she stepped on a screw in their bathroom that resulted in minimal bleeding. Wound was cleaned with hydrogen peroxide and topical antibiotic ointment but progressed to more swelling and pain. Referred to ED from Urgent care clinic. Tetanus up to date per ER note. (past 5 years) On admission, vitals stable. Wbc initially 13K, cr 1.04. CT foot No radiopaque foreign body. No fracture, No osteomyelitis or gas. Puncture wound of the plantar aspect of the left forefoot. Associated skin thickening and inflammation consistent with cellulitis which extends toward the left fourth and fifth metatarsophalangeal joints. A few possible tiny abscesses adjacent to the left fifth metatarsal head Started on Cefepime Daptomycin Flagyl. Of note, UA 2+ leukocyte esterase, >30 WBC, and 1+ bacteria, UCx grew low counts of three types of organisms probable skin francisca. 09/20 superficial wound culture grew BHS, Group A and MSSA. Urology consulted for renal stones, ultrasound on 09/21 confirmed b/l nephrolithiasis with 13mm stone in Left kidney Orthopaedics taken to OR on 09/24 for Left Foot Abscess Incision and Drainage, debridement of 1 cm puncture wound to the level of subcutaneous fat and fascia, arthrotomy of left fifth metatarsophalangeal joint with irrigation, tenosynovectomy of left fifth extensor tendon. On 09/22 underwent cystoscopy and left ureteral stent placement Discussion: Patient with septic arthritis and tenosynovitis. Superficial cx grew strep and MSSA. She is on broad antibiotics because of allergies. Anticipate she will need 3 weeks total of antibiotics from debridement. I spoke with Dr. Cao she has tolerated Keflex before multiple times. (2) Abscess of left foot: (3) Tenosynovitis of left foot: (4) Cellulitis of left foot: (5) Puncture wound: (6) Morbid obesity with BMI of 45.0-49.9, adult: (7) Leukocytosis: Plan -Change to Cefazolin 2G IV TID -When patient is ready for discharge, can change to Keflex 500mg po q6 hours for a total of 3 weeks from debridment ID will s/p please call w/ questions. I spoke with Dr. Nash Lewis MD Infectious Diseases [facility] Admission and Anticipated Discharge Date Admission Date: September 21, 2022 Subjective This patient recommendation is based on a telemedicine consult request which was completed asynchronously through chart review and information provided by the primary physician. The patient was not seen or examined today. The evaluation is consultative in nature and all patient care and treatment decisions can either be accepted or rejected by the patient's primary hospital-based treating james nayakian using their own independent medical judgment for their patient. Time Spent Reviewing Chart: 11 - 20 minutes Results & Data ([facility]) Vital Signs (Past 12 Hours) Vital Signs Temp Pulse Resp BP Pulse Ox O2 Del Method 09/26/22 11:29 36.5 C 85 136/86 96 Room Air 09/26/22 08:33 36.8 C 78 17 146/94 H 95 Room Air Laboratory Results Laboratory Results - last 48 hr 09/24/22 09/24/22 09/25/22 17:54 20:45 07:59 WBC RBC Hgb Hct MCV MCH MCHC RDW Std Deviation RDW Coeff of Louann Plt Count MPV Sodium Potassium Chloride Carbon Dioxide Anion Gap BUN Creatinine Est Cr Clr Drug Dosing Est GFR ( Amer) Est GFR (Non-Af Amer) BUN/Creatinine Ratio Glucose POC Glucose 96 90 97 Calcium 09/25/22 09/25/22 09/25/22 09:01 09:01 12:12 WBC 12.17 H RBC 4.28 Hgb 12.7 Hct 38.2 MCV 89.3 MCH 29.7 MCHC 33.2 RDW Std Deviation 39.8 RDW Coeff of Louann 12.4 Plt Count 339 MPV 9.8 Sodium 135 L Potassium 3.8 Chloride 101 Carbon Dioxide 28 Anion Gap 6 BUN 13 Creatinine 0.95 Est Cr Clr Drug Dosing 103.2 Est GFR ( Amer) 87.4 Est GFR (Non-Af Amer) 75.4 BUN/Creatinine Ratio 13.7 Glucose 111 H POC Glucose 116 H Calcium 9.0 03/09/1809/25/22 09/26/22 17:19 20:22 08:03 WBC RBC Hgb Hct MCV MCH MCHC RDW Std Deviation RDW Coeff of Louann Plt Count MPV Sodium Potassium Chloride Carbon Dioxide Anion Gap BUN Creatinine Est Cr Clr Drug Dosing Est GFR ( Amer) Est GFR (Non-Af Amer) BUN/Creatinine Ratio Glucose POC Glucose 90 117 H 88 Calcium 09/26/22 12:04 WBC RBC Hgb Hct MCV MCH MCHC RDW Std Deviation RDW Coeff of Louann Plt Count MPV Sodium Potassium Chloride Carbon Dioxide Anion Gap BUN Creatinine Est Cr Clr Drug Dosing Est GFR ( Amer) Est GFR (Non-Af Amer) BUN/Creatinine Ratio Glucose POC Glucose 101 H Calcium Microbiology 09/20/22 12:05 Blood Aerobic Blood Culture - Final No growth in Aerobic bottle after 5 days. 09/20/22 12:05 Blood Anaerobic Blood Culture - Final No growth in Anaerobic bottle after 5 days. 09/20/22 11:46 Blood Aerobic Blood Culture - Final No growth in Aerobic bottle after 5 days. 09/20/22 11:46 Blood Anaerobic Blood Culture - Final No growth in Anaerobic bottle after 5 days. 09/20/22 13:49 Foot,Left Gram Stain - Final 09/20/22 13:49 Foot,Left Aerobic and Anaerobic Culture - Final Group A Beta Strep Staphylococcus aureus Staphylococcus aureus#2 09/20/22 13:09 Urine,Clean Catch Urine Culture - Final Three types of organisms present, all low counts probable skin francisca. No further identifications or sensitivities to follow. (7) Leukocytosis Leukocytosis type: unspecified Qualified Code(s): D72.829 - Elevated white blood cell count, unspecified
[2022-09-26] MEDS: ceFAZolin 2000MG 2,000 MG/15 ML SYR IV SCH ×2 (15:43→22:13)
--- NOTE | 2022-09-26 21:04 | Hospitalist Progress Note ---
Date of Service September 26, 2022 Assessment & Plan (1) Cellulitis of left foot: Plan: Clinically stable/improved. Foot infection 2nd to puncture wound from a nail from a piece of furniture. s/p I/D done of tiny abscess on foot in the ER - culture grew GBS and MSSA. unfortunately the foot worsened despite appropriate IV abx therapy. POD #2 s/p the following by Dr Gill - 1. Left foot abscess between the fourth and fifth metatarsal heads. 2. 1 cm puncture plantar left foot. 3. Septic arthritis fifth metatarsophalangeal joint. 4. Tenosynovitis of the left fifth toe extensor tendon. Given that there was tendon/joint involvement I consulted ID. I spoke with [facility] today - they recommended transition to IV ancef, and if tolerates, can transition to PO keflex and Rx for 3 additional weeks. Recheck CBC, CRP am. (2) Tenosynovitis of left foot: Plan: L 5th toe extensor tendon - see #1 above (3) Septic arthritis of left foot: Plan: 5th MTP joint - see #1 above (4) Bilateral kidney stones: Plan: POD #4 - s/p left sided ureteral stent placement. b/l stones with larger stone on left. had been having flank pain on left hence the stent placement. typically follows with urology in [place]. appreciate urology assistance. no issues since stent placement. has f/u on 10/14/[address] Louis - [facility] [place] [facility]. (5) Diabetes mellitus: Plan: excellent control novolog SSI hba1c 5.7% (6) GERD (gastroesophageal reflux disease): Plan: Continue PPI Controlled (7) Asthma: Plan: Stable No issues No pulmonary symptoms (8) Urinary tract infection: Plan: urine cx negative but will presume there was UTI abx for #1 will cont to suffice day #7 of IV abx today (9) Nausea & vomiting: Plan: resolved as of 09/21 (10) Anxiety: Plan: controlled w/ buspar TSH wnl (11) Hypomagnesemia: Plan: replaced resolved (12) Vitamin D deficiency: Plan: 25-OH vit D level = 10.8 cont ergocalciferol 50,000 units qweekly x 8 weeks first dose was 09/22/22 (13) Crohn disease: Plan: reported history of such follows with Dr Louis in [place], was to be on q6wks Entyvio but hasn't gotten in about a year due to her job change and not getting the time off no flare in quite some time regardless needs to re-establish care with Neel Castellanos (14) Morbid obesity with BMI of 45.0-49.9, adult: Plan: BMI 46.7 (15) Pain of left calf: Plan: although she has been getting lovenox 40mg BID there were a few times where the lovenox was held further, she has a strong family history of VTE thus, to be safe, check doppler of left leg - r/o DVT Plan DVT proph - lovenox BID due to morbid obesity at discharge - given weight bearing status restrictions and inactivity - aspirin 81mg BID appreciate Dr Gill's consultation and surgical assistance PT consult for any recs from their standpoint hopefully home next 24-48 hours Admission and Anticipated Discharge Date Admission Date: September 21, 2022 Subjective no new issues overnight other than L foot pain - mild - she feels well getting used to ambulating on heel on left foot no diarrhea eating well toradol early this AM helped nicely with pain she reports she has taken keflex numerous times over the years without rash or other allergy symptoms Review of Systems Review of Systems: gen - no fevers or chills cv - no cp pulm - no dyspnea GI - no abd pain - no dysuria musculo - left calf pain - distal - mild Physical Exam Physical Exam: gen - obese, NAD; looks good today neck - no JVD mouth - MMM heart - RRR, s1 s2, no murmur lungs - CTA b/l abd - soft NT ND BS+ vascular - pulses 2+ b/l feet skin - left foot dressings intact from her surgery; cap refill all toes L foot < 2 sec ext - left calf with appearance, no tenderness, no warmth Results & Data Results & Data ([facility]) Vital Signs (Past 12 Hours) Vital Signs Temp Pulse Pulse Resp BP Pulse Ox O2 Del Method 09/26/22 16:01 36.3 C L 71 16 119/82 94 Room Air 09/26/22 11:29 36.5 C 85 136/86 96 Room Air Laboratory Results Laboratory Results - last 48 hr 09/25/22 09/25/22 09/25/22 07:59 09:01 09:01 WBC 12.17 H RBC 4.28 Hgb 12.7 Hct 38.2 MCV 89.3 MCH 29.7 MCHC 33.2 RDW Std Deviation 39.8 RDW Coeff of Louann 12.4 Plt Count 339 MPV 9.8 Sodium 135 L Potassium 3.8 Chloride 101 Carbon Dioxide 28 Anion Gap 6 BUN 13 Creatinine 0.95 Est Cr Clr Drug Dosing 103.2 Est GFR ( Amer) 87.4 Est GFR (Non-Af Amer) 75.4 BUN/Creatinine Ratio 13.7 Glucose 111 H POC Glucose 97 Calcium 9.0 09/25/22 09/25/22 09/25/22 12:12 17:19 20:22 WBC RBC Hgb Hct MCV MCH MCHC RDW Std Deviation RDW Coeff of Louann Plt Count MPV Sodium Potassium Chloride Carbon Dioxide Anion Gap BUN Creatinine Est Cr Clr Drug Dosing Est GFR ( Amer) Est GFR (Non-Af Amer) BUN/Creatinine Ratio Glucose POC Glucose 116 H 90 117 H Calcium 09/26/22 09/26/22 09/26/22 08:03 12:04 16:57 WBC RBC Hgb Hct MCV MCH MCHC RDW Std Deviation RDW Coeff of Louann Plt Count MPV Sodium Potassium Chloride Carbon Dioxide Anion Gap BUN Creatinine Est Cr Clr Drug Dosing Est GFR ( Amer) Est GFR (Non-Af Amer) BUN/Creatinine Ratio Glucose POC Glucose 88 101 H 82 Calcium PG Care Time/CCT Total # of Minutes Spent Total Time Spent with Patient: Total time spent is greater than 50% in coordination of care (as documented) at patient's floor/unit and/or counseling patient: Coding Level of Care Code 54217 SUB INP/OBS CARE 2/35MIN Diagnoses Cellulitis of left foot L03.116 Tenosynovitis of left foot M65.9 Septic arthritis of left foot M00.9 Bilateral kidney stones N20.0 Diabetes mellitus E11.9 GERD (gastroesophageal reflux disease) K21.9 Asthma J45.909 Urinary tract infection N39.0 Nausea & vomiting R11.2 Anxiety F41.9 Hypomagnesemia E83.42 Vitamin D deficiency E55.9 Crohn disease K50.90 Morbid obesity with BMI of 45.0-49.9, adult E66.01; Z68.42 Pain of left calf M79.662
[2022-09-27] MEDS: KETOROLAC 30 MG/ML VIAL IV PRN (05:22)
[2022-09-27] MEDS: ACETAMINOPHEN 325 MG TAB PO SCH (05:23)
[2022-09-27] MEDS: ENOXAPARIN INJ 40 MG/0.4 ML SYR SQ SCH (05:23)
[2022-09-27] MEDS ORDERED: FAMOTIDINE 10 MG TABLET PO ONE (05:28)
[2022-09-27] MEDS: ceFAZolin 2000MG 2,000 MG/15 ML SYR IV SCH (06:19)
[2022-09-27 06:39] LABS: Hemoglobin 12.3 g/dl (12.0-16.0); Mean Corpuscular Hemoglobin 30.3 pg (25.0-34.0); Mean Corpuscular Hgb Conc 34.2 g/dL (32.0-36.0); Mean Corpuscular Volume 88.7 fL (80.0-100.0); Mean Platelet Volume 9.6 fL (9.4-12.4); Platelet Count 330 K/uL (130-400); RDW Coefficient of Variation 12.3 % (11.5-14.5); RDW Standard Deviation 39.4 fL (36.4-46.3); Red Blood Count 4.06 M/uL (4.20-5.40); White Blood Count 10.95 K/ul (4.8-10.8)
[2022-09-27] MEDS ORDERED: oxyCODONE/APAP 7.5/325MG TAB PO PRN (07:37)
--- NOTE | 2022-09-27 08:04 | Ultrasound Report ---
US venous doppler LE LT CLINICAL HISTORY: recent L foot surgery, L calf pain; r/o dvt TECHNIQUE: Left lower extremity real-time compression venous ultrasound with Color Doppler imaging. U tilizing real-time ultrasonic imaging multiple real time high-resolution ultrasonic images with compr ession and noncompression maneuvers of the deep venous system in addition to color doppler imaging we re performed from the common femoral vein through the proximal calf veins. COMPARISON: None available at the time of this dictation. FINDINGS/IMPRESSION: Currently there is normal compressibility of the deep venous system from the common femoral vein thro ugh the proximal calf veins. No superficial venous thrombosis is identified. ACT 112: Negative or not required by law. Electronically signed by: Isaac Yen M.D. 09/27/2022 8:02 AM
[2022-09-27] MEDS: busPIRone 15 MG TAB PO SCH ×2 (08:15→13:03)
[2022-09-27] MEDS: PANTOprazole 40 MG TAB PO SCH (08:15)
[2022-09-27] MEDS: ADVANCED PROBIOTIC 1250 MG CAPSULE PO SCH (09:04)
[2022-09-27] MEDS: INSULIN ASPART PER UNIT SC SCH ×2 (09:06→13:03)
[2022-09-27 09:45] LABS: BUN Creatinine Ratio 15.2 (10-20); C Reactive Protein 1.69 mg/dl (0-0.5); Calcium 9.2 mg/dl (8.5-10.1); Creatinine Clr Calc Pharmacy 93.4 ml/min; Est GFR (African American) 77.5 ml/min; Est GFR (Non-African American) 66.8 ml/min; Potassium 3.6 mmol/L (3.5-5.1)
[2022-09-27] MEDS ORDERED: ACETAMINOPHEN 325 MG TAB PO SCH (11:30)
[2022-09-27] MEDS ORDERED: cephALEXin 500 MG CAP PO SCH (13:00)
== END 2022-09-27 15:50 | disposition home or self-care (01) | DRG 580 ==
LOC: ED 11:16 → 3N 11:16 → SUATTDRO 14:19 → 3N 15:04 → SUATTDRO 09-21 12:06